=== PATIENT | female | born 1950 | race Caucasian/White ===

== ENCOUNTER 2019-10-18 05:54 | Day surgery (SDC) | payer MEDICARE, OTHER ==
[~2019-10-18] VITALS: Ht 154.9 cm; Wt 57.2 kg
[~2019-10-18 05:54] MED LIST: ACET500T68 PO; AMLO2.5T5 PO; ATOR20TA58 PO; LOSA25TA54 PO; NAPR-695 PO
[2019-10-18] MEDS ORDERED: fentaNYL PF VIAL 100 MCG/2 ML VIAL IV PRN (07:00)
[2019-10-18] MEDS ORDERED: ONDANSETRON PF 4 MG/2 ML VIAL. IV PRN (07:00)
[2019-10-18] MEDS ORDERED: IV RINGERS,LACTATED 1000ML 1,000 ML IV SCH (07:00)
[2019-10-18] MEDS ORDERED: MORPHINE SULFATE 2 MG/ML VIAL. IV PRN (07:00)
[2019-10-18] MEDS ORDERED: HYDROmorphone 2 MG/ML VIAL IV PRN (07:00)
[2019-10-18] MEDS ORDERED: PROCHLORPERAZINE 10 MG/2 ML VIAL. IV PRN (07:00)
[2019-10-18] MEDS ORDERED: LIDOCAINE 1% Multi-Dose 20 ML VIAL. ONE (07:13)
[2019-10-18] MEDS ORDERED: HYDR-3164 PO (07:27)
--- NOTE | 2019-10-18 07:33 | DISCH ---
DISCHARGE INSTRUCTIONS Condition on Discharge Condition on Discharge: Stable Activity After Discharge Activity Instructions for Disc: Other, see below (gentle wrist motion with fine motor use allowed avoid excessive wrist motion or hard grasp during first 3-4 weeks) Lifting Instructions after Dis: No heavy lifting, No pulling or pushing Diet after Discharge Diet after Discharge: Regular Wound Incision Care Wound/Incision Care: Ice to area for comfort, Keep wound elevated, Do not change dressing (keep dressing intact for a week unless soiled) Contacting the DRBrigette after DC Call your doctor for: Concerns you may have Follow-Up Follow up with: Dr. Jensen 1 week LIDIA JENSEN MD Oct 18, 2019 07:32
[2019-10-18] MEDS ORDERED: PROPOFOL 40 ML IV ONE (08:01)
[2019-10-18] MEDS ORDERED: LIDOCAINE 1% PF 5 ML VIAL. ONE (08:01)
[2019-10-18] MEDS ORDERED: HYDROcodone/APAP 5/325MG 1 TAB TABLET PO PRN (08:30)
[2019-10-18] MEDS: fentaNYL PF VIAL 100 MCG/2 ML VIAL IV PRN ×2 (08:34→08:47)
--- NOTE | 2019-10-18 08:43 | PDOC4 ---
Operative Note Operative Note Date of surgery: 10/18/2019 Preoperative diagnosis: Ganglion cyst volar right wrist Postoperative diagnosis: Same Operative procedure: Excision volar ganglion cyst right wrist Surgeon: Mikey Assist: Jone Richards nurse practitioner Anesthesia: Aniket block Estimated blood loss: 1 mL Complications: None Specimens: Ganglion cyst to pathology Operative indications: Please see my preoperative orthopedic clinic note for detailed operative indications and note that I had discussed with her the possibility of nonoperative treatment and the operative treatment risks of i nfection nerve or blood vessel damage recurrence of the ganglion continued pain medical or other anesthetic complications among others all her questions were answered she wishes to proceed with surgical evaluation and treatment. Operative text: Patient was identified procedure verified patient placed in the supine position on the operating table. After adequate amounts of her block anesthesia were administered the right upper extremity was prepped and draped in standard sterile fashion after timeout was performed patient procedure identified and verified a longitudinal incision was made over the volar ganglion on the radial side of the wrist. Dissection was carried out around the ganglion and underlying blood vessel was dissected free and preserved the ganglion was dissected free and sent to pathology the stalk originated from an underlying tendon sheath and was cauterized. Closure accomplished with buried Vicryl Steri- Strips and Mastisol sterile soft dressings were placed fingers noted be warm pink find deflation of tourniquet patient was returned to recovery room in stable condition having tolerated procedure well LIDIA AGUILAR MD Oct 18, 2019 08:43
[2019-10-18 09:10] VITALS: BP 138/68
== END 2019-10-18 09:25 | disposition home or self-care (01) ==
LOC: SURG 05:54
PROVIDERS: ATTEND Orthopaedic Surgery
DX: M67.431 Ganglion, right wrist (principal); I10 Essential (primary) hypertension; E78.00 Pure hypercholesterolemia, unspecified; Z72.89 Other problems related to lifestyle
CPT/HCPCS: 25111; J0690; J2704; J3010

== ENCOUNTER → 2021-12-17 | Outpatient (CLI) | payer MEDICARE, OTHER ==
[~2021-12-17] MED LIST changes: +ARMO250T4 PO; +DOCU-109 PO; +GABA600T7 PO; +HYDR-2761 PO; +HYDR-3164 PO; +METH-562 PO; +TRAM50TA PO
--- NOTE | 2021-12-17 15:20 | EKG ---
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
[2021-12-17 15:27] LABS: ALBUMIN 3.4 g/dL (3.4-5.0); ALBUMIN/GLOBULIN RATIO 0.9 (1.0-1.7); CALCIUM 9.1 mg/dL (8.5-10.1); CREATININE 0.9 mg/dL (0.6-1.0); GFR 61.5; TOTAL BILIRUBIN 0.5 mg/dL (0.2-1.0)
[2021-12-17 16:05] LABS: BASO # 0.1 x10^3/uL (0.0-0.2); BASO % 1 % (0-3); EOS # 0.2 x10^3/uL (0.0-0.7); EOS % 2 % (0-3); HEMATOCRIT 38.3 % (36.0-47.0); HEMOGLOBIN 12.6 g/dL (12.0-15.5); LYMPH # 1.1 x10^3/uL (1.0-4.8); LYMPH % 11 % (24-48); MEAN CORPUSCULAR HEMOGLOBIN 30 pg (25-35); MEAN CORPUSCULAR HGB CONC 33 g/dL (31-37); MEAN CORPUSCULAR VOLUME 91 fL (79-100); MONO # 0.8 x10^3/uL (0.0-1.1); MONO % 9 % (0-9); NEUT # 7.6 x10^3/uL (1.8-7.7); NEUT % 78 % (31-73); PLATELET COUNT 318 x10^3/uL (140-400); RED BLOOD COUNT 4.22 x10^6/uL (3.50-5.40); RED CELL DISTRIBUTION WIDTH 12.9 % (11.5-14.5); WHITE BLOOD COUNT 9.7 x10^3/uL (4.0-11.0)
== END ==
LOC: SURGPAT 14:33
PROVIDERS: ATTEND Neurological Surgery
DX: Z01.818 Encounter for other preprocedural examination (principal); M48.02 Spinal stenosis, cervical region
CPT/HCPCS: 36415; 80053; 85025; 87641; 93005

== ENCOUNTER 2021-12-19 07:27 | Inpatient (IN) | payer MEDICARE, OTHER ==
[2021-12-17 15:04] VITALS: BP 109/78
--- NOTE | 2021-12-18 15:42 | PREOP HP ---
DATE OF SERVICE: 12/19/2021 HISTORY OF PRESENT ILLNESS: The patient is a pleasant 71-year-old who is having difficulty with low back pain and pain between her right hip and buttock and anterolateral thigh to the knee. She is also having difficulty with unsteady gait and stumbling. With regard to her lower back, sitting and lying on the right side can help. Walking and standing make the problem worse. She is taking gabapentin and tramadol. She has had physical therapy in 06/2021. She does use a cane, but has not fallen. She also notices weakness in her right foot. CURRENT MEDICATIONS: Loratadine, multivitamin, atorvastatin, losartan, amlodipine, tramadol, Celebrex, and gabapentin. PAST MEDICAL HISTORY: Arthritis, right knee replacement, and hypertension. PAST SURGICAL HISTORY: Right rotator cuff repair, cervical fusion, tendon repair, right total knee replacement. SOCIAL HISTORY: Retired, , nonsmoker. Drinks alcohol 1-2 times per year. ALLERGIES: No known drug allergies. REVIEW OF SYSTEMS: A 12-point review of systems was performed and is noncontributory. PHYSICAL EXAMINATION: GENERAL: Alert, pleasant, in no acute distress. HEENT: Head is normocephalic, atraumatic. NECK: Mild tenderness with palpation of the posterior cervical region, well-healed incision. SKIN: Warm and dry. MUSCULOSKELETAL: Cervical and lumbar paraspinal muscle bulk is normal, restricted range of motion of the cervical spine, normal range of motion of the upper and lower extremities bilaterally. EXTREMITIES: No clubbing, cyanosis or edema. NEUROLOGIC: Alert and oriented x 3. Strength is 5/5 in the bilateral lower extremities except 4/5 right foot dorsiflexion, sensory was intact to light touch in the upper and lower extremities except for decreased in the dorsum of her right foot, reflexes were brisk 3+ and symmetric in the bilateral lower extremities. She has spastic gait. IMAGING: On the cervical MRI scan, she has moderately severe cervical spinal stenosis at L 3-4 and severe stenosis at C4-5. ASSESSMENT AND PLAN: At this point, the cervical stenosis needs to be addressed first. She will need a 2-level ACDF at C3-4 and C4-5. She does have spinal stenosis at L4-5 as well. After she is recovered from cervical surgery, she will require a right direct laminectomy at L4-5. I spoke with her about the cervical surgery including the spine and explained the risk of the surgery in detail. We also reviewed the expected postoperative course. She understands and would strongly like to go ahead. We will make the arrangements. RUI/MADELINE/GABBI DR: Ayan TID: [id number]
[2021-12-19] VITALS (10 sets, daily range): BP systolic 103–143; BP diastolic 52–86
[~2021-12-19] VITALS: Ht 154.9 cm; Wt 56.0 kg
[~2021-12-19 07:27] MED LIST changes: +0.9 % SODIUM CHLORIDE 20 ML VIAL. IJ ONE; +BUPIVACAINE-EPI 0.5% 30 ML VIAL KIT. ONE; +DEXAMETHASONE SOD PHOS 4 MG/ML VIAL ONE; -DOCU-109 PO; +GELATIN SPONGE SIZE 100. ONE; -HYDR-2761 PO; +HYDROmorphone 2 MG/ML INJ. IVP PRN; +IV RINGERS,LACTATED 1000ML 1,000 ML IV SCH; +KETOROLAC 60 MG/2 ML VIAL. ONE; +LIDOCAINE 2% PF 5 ML VIAL. ONE; -METH-562 PO; +ONDANSETRON PF 4 MG/2 ML VIAL. ONE; +PHENYLEPHRINE 10 MG/ML VIAL. ONE; +PHENYLEPHRINE in 0.9% NACL PF 1 MG/10 ML SYRINGE. IV ONE; +PROCHLORPERAZINE 10 MG/2 ML VIAL. IVP PRN; +PROPOFOL 10 MG/ML (20ML) VIAL. IV ONE; +PROPOFOL 50 ML IV ONE; +REMIFENTANIL 1 MG VIAL. IV ONE; +ROCURONIUM 50 MG/5 ML VIAL. ONE; +THROMBIN TOPICAL 20,000 UNIT SPRAY.SYRN KIT TP ONE; +ceFAZolin SODIUM 1 GM in IV NORMAL SALINE 1000ML BAG 1,000 ML IRR ONE; +fentaNYL PF VIAL 100 MCG/2 ML VIAL IVP PRN; +fentaNYL PF VIAL 100 MCG/2 ML VIAL ONE
[2021-12-19] MEDS ORDERED: GLYCOPYRROLATE 1 MG/5 ML VIAL. ONE (07:30)
[2021-12-19] MEDS ORDERED: SCOPOLAMINE 1.5MG PATCH. TD ONE (07:30)
[2021-12-19] MEDS ORDERED: PROPOFOL 50 ML IV ONE (08:29)
[2021-12-19] MEDS ORDERED: ceFAZolin 2GM PREMIX 2 GM/50 ML BAG IV ONE (08:30)
[2021-12-19] MEDS ORDERED: NEOSTIGMINE METHYLSULFATE 5 MG/5 ML SYRINGE. ONE (10:44)
[2021-12-19] MEDS ORDERED: fentaNYL PF VIAL 100 MCG/2 ML VIAL ONE ×2 (10:55→13:32)
[2021-12-19] MEDS ORDERED: POTASSIUM CL 20MEQ D5-0.45NACL 1,000 ML IV SCH (13:15)
[2021-12-19] MEDS ORDERED: 0.9 % SODIUM CHLORIDE 10 ML DISP.SYRIN. IV PRN (13:15)
[2021-12-19] MEDS ORDERED: NALOXONE 0.4 MG/ML VIAL. IV PRN (13:15)
[2021-12-19] MEDS ORDERED: diphenhydrAMINE HCL 25 MG CAPSULE PO PRN (13:15)
[2021-12-19] MEDS ORDERED: traMADol 50 MG TABLET PO PRN (13:15)
[2021-12-19] MEDS ORDERED: CALCIUM CARBONATE 500 MG TAB.CHEW PO PRN (13:15)
[2021-12-19] MEDS ORDERED: MAG HYDROX/ALUMINUM HYD/SIMETH 30 ML ORAL.SUSP PO PRN (13:15)
[2021-12-19] MEDS ORDERED: fentaNYL PF VIAL 100 MCG/2 ML VIAL IVP PRN (13:15)
[2021-12-19] MEDS ORDERED: MAGNESIUM HYDROXIDE 2,400 MG/30 ML ORAL.SUSP. PO PRN (13:15)
[2021-12-19] MEDS ORDERED: ACETAMINOPHEN 325 MG TABLET. PO PRN (13:15)
[2021-12-19] MEDS ORDERED: HYDROcodone/APAP 5/325MG 1 TAB TABLET PO PRN (13:15)
[2021-12-19] MEDS ORDERED: ONDANSETRON PF 4 MG/2 ML VIAL. IVP PRN (13:15)
[2021-12-19] MEDS ORDERED: MORPHINE SULFATE 2 MG/ML INJ. ONE (13:32)
[2021-12-19] MEDS: fentaNYL PF VIAL 100 MCG/2 ML VIAL IVP PRN ×2 (13:34→13:45)
[2021-12-19] MEDS: MORPHINE SULFATE 2 MG/ML INJ. IVP PRN ×2 (13:36→13:58)
[2021-12-19] MEDS ORDERED: PROCHLORPERAZINE 10 MG/2 ML VIAL. ONE (13:59)
--- NOTE | 2021-12-19 15:29 | NUR ---
received from PACU. she is drowsy; voice is a whisper and mouth dry. has a history of post op nausea; denies nausea at this time. states that the tips of right fingers feel numb but has sensation to touch of my nail on the tips. she has numbness on the soles of her feet; not new. son at bedside Addendum: 12/19/21 at 1533 by STUART ALMONTE RN dressing is dry and intact. multiple bruising on her bilateral forearms
[2021-12-19] MEDS: METHOCARBAMOL 750 MG TABLET PO PRN (15:30)
[2021-12-19] MEDS: ceFAZolin SODIUM IV Push 1 GM VIAL. IVP SCH (17:17)
[2021-12-19] MEDS ORDERED: GABAPENTIN 300 MG CAPSULE. PO SCH (21:00)
[2021-12-19] MEDS ORDERED: ATORVASTATIN CALCIUM 20 MG TABLET PO SCH (21:00)
[2021-12-19] MEDS: DOCUSATE SODIUM 100 MG CAPSULE. PO SCH (21:19)
[2021-12-20] MEDS: ceFAZolin SODIUM IV Push 1 GM VIAL. IVP SCH ×2 (01:01→08:29)
[2021-12-20] MEDS: fentaNYL PF VIAL 100 MCG/2 ML VIAL IVP PRN (01:10)
[2021-12-20 03:00] VITALS: BP 122/66
[2021-12-20 07:00] VITALS: BP 120/73
[2021-12-20] MEDS ORDERED: GABAPENTIN 100 MG CAPSULE. PO SCH (08:00)
[2021-12-20] MEDS: DOCUSATE SODIUM 100 MG CAPSULE. PO SCH (08:29)
[2021-12-20] MEDS: HYDROcodone/APAP 5/325MG 1 TAB TABLET PO PRN ×2 (08:29→16:11)
[2021-12-20] MEDS ORDERED: LOSARTAN POTASSIUM 50 MG TABLET. PO SCH (09:00)
[2021-12-20] MEDS ORDERED: NON FORMULARY ITEM (Armodafinil (Nuvigil) 1 TAB) PO SCH (09:00)
[2021-12-20] MEDS: METHOCARBAMOL 750 MG TABLET PO PRN (10:57)
[2021-12-20 11:05] VITALS: BP 107/68
[2021-12-20] MEDS ORDERED: DOCU-109 PO (13:15)
[2021-12-20] MEDS ORDERED: METH-562 PO (13:15)
[2021-12-20] MEDS ORDERED: HYDR-2761 PO (13:15)
--- NOTE | 2021-12-20 13:19 | DISCH ---
DISCHARGE INSTRUCTIONS Condition on Discharge Condition on Discharge: Stable Activity After Discharge Activity Instructions for Disc: Activity as tolerated, Avoid exertion, Other, see below Other activity instructions: no driving for a week Bathing Instructions: Shower-keep dressing dry, No Tub Bath until see Lifting Instructions after Dis: No heavy lifting, No pulling or pushing Diet after Discharge Diet after Discharge: Regular Additional Diet Restrictions: resume home diet, soft Wound Incision Care Wound/Incision Care: Ice to area for comfort, Keep wound elevated, Do not change dressing Other wound/incision instructi: may remove dressing in 48 hours if dry, soft collar for comfort Contacting the after DC Call your doctor for: Concerns you may have Follow-Up Follow up with: Dr. Norris's nurse in 2 weeks [phone] RHEA NORRIS MD Dec 20, 2021 13:19
[2021-12-20 15:05] VITALS: BP 101/54
--- NOTE | 2021-12-20 16:00 | PDOC ---
PROGRESS NOTES Date of Service DATE: 12/20/21 TIME: 15:58 Subjective Subjective seen at 1315 pod #1 s/p ACDF feels good neck sore Objective Objective Vital Signs Date Time Temp Pulse Resp B/P (MAP) Pulse Ox O2 Delivery O2 Flow Rate FiO2 12/20/21 15:05 99.3 71 18 101/54 (70) 96 Room Air 99.3 12/20/21 08:00 4.0 Intake and Output 12/20/21 07:00 Intake Total 1350 ml Output Total 435 ml Balance 915 ml Intake Oral 700 ml IV Total 650 ml Output Urine Total 400 ml Stool Total 0 ml Estimated Blood Loss 35 ml # Voids 3 Physical Exam General: Alert, Oriented X3, Cooperative HEENT: Other (soft collar) MUSCULOSKELETAL: Other (LAMB) Skin: Other (dressing C,D, I, flat) Plan Plan of Care DC home f/u 2 weeks Comment Review of Relevant I have reviewed the following items janay (where applicable) has been applied. Labs Laboratory Tests Test 12/19/21 07:50 POC SARS CoV-2 Antigen Negative (NEGATIVE) Medications Current Medications Fentanyl Citrate (Fentanyl 2ml Vial) 25 mcg PRN Q5MIN PRN IVP MILD PAIN 1-3; Start 12/19/21 at 06:00; Stop 12/20/21 at 06:00; Status DC Fentanyl Citrate (Fentanyl 2ml Vial) 50 mcg PRN Q5MIN PRN IVP MODERATE PAIN 4-6 Last administered on 12/20/21at 01:10; Start 12/19/21 at 06:00; Stop 12/20/21 at 06:00; Status DC Morphine Sulfate (Morphine Sulfate) 1 mg PRN Q10MIN PRN IVP SEVERE PAIN 7-10 Last administered on 12/19/21at 13:58; Start 12/19/21 at 06:00; Stop 12/20/21 at 06:00; Status DC Ringer's Solution 1,000 ml @ 30 mls/hr Q24H IV Last administered on 12/19/21at 08:00; Start 12/19/21 at 06:00; Stop 12/19/21 at 17:59; Status DC Hydromorphone HCl (Dilaudid) 0.5 mg PRN Q10MIN PRN IVP SEVERE PAIN 7-10, 2nd CHOICE; Start 12/19/21 at 06:00; Stop 12/20/21 at 06:00; Status DC Prochlorperazine Edisylate (Compazine) 5 mg PACU PRN PRN IVP NAUSEA, MRX1 Last administered on 12/19/21at 14:00; Start 12/19/21 at 06:00; Stop 12/20/21 at 06:00; Status DC Cefazolin Sodium 1 gm/Sodium Chloride 1,000 ml @ 1,000 mls/hr 1X ONCE IRR Last administered on 12/19/21at 09:53; Start 12/19/21 at 06:00; Stop 12/19/21 at 06:59; Status DC Gelatin (Gelfoam Size 100) 1 each STK-MED ONCE .ROUTE Last administered on 12/19/21at 09:53; Start 12/19/21 at 07:20; Stop 12/19/21 at 07:21; Status DC Bupivacaine HCl/ Epinephrine Bitart (Sensorcain-Epi 0.5% Kit) 30 ml STK-MED ONCE .ROUTE Last administered on 12/19/21at 09:53; Start 12/19/21 at 07:20; Stop 12/19/21 at 07:21; Status DC Ketorolac Tromethamine (Toradol Im) 60 mg STK-MED ONCE .ROUTE ; Start 12/19/21 at 07:20; Stop 12/19/21 at 07:21; Status DC Thrombin 20,000 unit STK-MED ONCE TP Last administered on 12/19/21at 09:53; Start 12/19/21 at 07:21; Stop 12/19/21 at 07:21; Status DC Scopolamine (Transderm-Scop) 1 patch 1X ONCE TD Last administered on 12/19/21at 08:00; Start 12/19/21 at 07:30; Stop 12/19/21 at 07:31; Status DC Cefazolin Sodium/ Dextrose 50 ml @ 100 mls/hr 1X ONCE IV Last administered on 12/19/21at 09:18; Start 12/19/21 at 08:00; Stop 12/19/21 at 08:29; Status DC Propofol (Diprivan) 200 mg STK-MED ONCE IV ; Start 12/19/21 at 06:06; Stop 12/19/21 at 08:07; Status DC Phenylephrine HCl (Robert-Synephrine Inj) 10 mg STK-MED ONCE .ROUTE ; Start 12/19/21 at 06:06; Stop 12/19/21 at 08:07; Status DC Propofol 50 ml @ As Directed STK-MED ONCE IV ; Start 12/19/21 at 06:06; Stop 12/19/21 at 08:07; Status DC Sodium Chloride (SODIUM CHLORIDE 20ml) 20 ml STK-MED ONCE IJ ; Start 12/19/21 at 06:06; Stop 12/19/21 at 08:07; Status DC Dexamethasone Sodium Phosphate (Decadron) 4 mg STK-MED ONCE .ROUTE ; Start 12/19/21 at 06:06; Stop 12/19/21 at 08:07; Status DC Remifentanil HCl (Ultiva) 1 mg STK-MED ONCE IV ; Start 12/19/21 at 06:06; Stop 12/19/21 at 08:07; Status DC Fentanyl Citrate (Fentanyl 2ml Vial) 100 mcg STK-MED ONCE .ROUTE ; Start 12/19/21 at 06:07; Stop 12/19/21 at 08:07; Status DC Rocuronium [place] (Zemuron) 50 mg STK-MED ONCE .ROUTE ; Start 12/19/21 at 06:07; Stop 12/19/21 at 08:07; Status DC Lidocaine HCl (Lidocaine Pf 2% Vial) 5 ml STK-MED ONCE .ROUTE ; Start 12/19/21 at 06:07; Stop 12/19/21 at 08:08; Status DC Ondansetron HCl (Zofran) 4 mg STK-MED ONCE .ROUTE ; Start 12/19/21 at 06:07; Stop 12/19/21 at 08:08; Status DC Phenylephrine HCl (Robert-Synephrine Inj) 10 mg STK-MED ONCE .ROUTE ; Start 12/19/21 at 06:23; Stop 12/19/21 at 08:23; Status DC Phenylephrine HCl (PHENYLEPHRINE in 0.9% NACL PF) 1 mg STK-MED ONCE IV ; Start 12/19/21 at 07:15; Stop 12/19/21 at 09:16; Status DC Glycopyrrolate (Robinul) 1 mg STK-MED ONCE .ROUTE ; Start 12/19/21 at 07:30; Stop 12/19/21 at 09:31; Status DC Propofol 50 ml @ As Directed STK-MED ONCE IV ; Start 12/19/21 at 08:29; Stop 12/19/21 at 10:29; Status DC Neostigmine [place] (Neostigmine Methylsulfate) 5 mg STK-MED ONCE .ROUTE ; Start 12/19/21 at 10:44; Stop 12/19/21 at 12:45; Status DC Fentanyl Citrate (Fentanyl 2ml Vial) 100 mcg STK-MED ONCE .ROUTE ; Start 12/19/21 at 10:55; Stop 12/19/21 at 12:56; Status DC Atorvastatin Calcium (Lipitor) 40 mg HS PO Last administered on 12/19/21at 21:20; Start 12/19/21 at 21:00 Losartan Potassium (Cozaar) 50 mg DAILY PO Last administered on 12/20/21at 08:32; Start 12/20/21 at 09:00 Tramadol HCl (Ultram) 50 mg DAILY PRN PO PAIN; Start 12/19/21 at 13:15 Amlodipine Besylate (Norvasc) 5 mg DAILY PO ; Start 12/20/21 at 09:00 Non-Formulary Medication (Armodafinil (Nuvigil)) 1 tab DAILY PO ; Start 12/20/21 at 09:00; Status UNV Gabapentin (Neurontin) 100 mg DAILYWBKFT PO Last administered on 12/20/21at 08:29; Start 12/20/21 at 08:00 Gabapentin (Neurontin) 300 mg HS PO Last administered on 12/19/21at 21:19; Start 12/19/21 at 21:00 Fentanyl Citrate (Fentanyl 2ml Vial) 50 mcg PRN Q2HR PRN IVP PAIN Last administered on 12/19/21at 15:32; Start 12/19/21 at 13:15 Acetaminophen (Tylenol) 650 mg PRN Q6HRS PRN PO MILD PAIN / TEMP > 100.3'F; Start 12/19/21 at 13:15 Al Hydroxide/Mg Hydroxide (Mylanta Plus Xs) 30 ml PRN Q3HRS PRN PO HEARTBURN / GAS; Start 12/19/21 at 13:15 Calcium Carbonate/ Glycine (Tums) 500 mg PRN Q3HRS PRN PO INDIGESTION; Start 12/19/21 at 13:15 Diphenhydramine HCl (Benadryl) 25 mg PRN Q6HRS PRN PO ITCHING; Start 12/19/21 at 13:15 Naloxone HCl (Narcan) 0.1 mg PRN Q2MIN PRN IV SEE COMMENTS; Start 12/19/21 at 13:15 Sodium Chloride (Normal Saline Flush) 3 ml QSHIFT PRN IV AFTER MEDS AND BLOOD DRAWS; Start 12/19/21 at 13:15 Potassium Chloride/Dextrose/ Sod Cl 1,000 ml @ 75 mls/hr [id number] IV ; Start 12/19/21 at 13:15 Acetaminophen/ Hydrocodone Bitart (Lortab 5/325) 1 tab PRN Q4HRS PRN PO MILD PAIN 1-3 Last administered on 12/20/21at 08:29; Start 12/19/21 at 13:15 Acetaminophen/ Hydrocodone Bitart (Lortab 5/325) 2 tab PRN Q4HRS PRN PO MODERATE PAIN, SEVERE PAIN; Start 12/19/21 at 13:15 Methocarbamol (Robaxin) 750 mg TID PRN PO MUSCLE SPASMS Last administered on 12/20/21at 10:57; Start 12/19/21 at 13:15 Docusate Sodium (Colace) 100 mg BID PO Last administered on 12/20/21at 08:29; Start 12/19/21 at 21:00 Magnesium Hydroxide (Milk Of Magnesia) 2,400 mg PRN Q12HR PRN PO CONSTIPATION; Start 12/19/21 at 13:15 Ondansetron HCl (Zofran) 4 mg PRN Q6HRS PRN IVP NAUESA, 1ST CHOICE; Start 12/19/21 at 13:15 Cefazolin Sodium (Ancef) 1 gm Q8H IVP Last administered on 12/20/21at 08:29; Start 12/19/21 at 17:00; Stop 12/20/21 at 09:01; Status DC Cefazolin Sodium/ Dextrose (Ancef 2gm Premix) 2 gm STK-MED ONCE IV ; Start 12/19/21 at 08:30; Stop 12/19/21 at 13:25; Status DC Fentanyl Citrate (Fentanyl 2ml Vial) 100 mcg STK-MED ONCE .ROUTE ; Start 12/19/21 at 13:32; Stop 12/19/21 at 13:32; Status DC Morphine Sulfate (Morphine Sulfate) 2 mg STK-MED ONCE .ROUTE ; Start 12/19/21 at 13:32; Stop 12/19/21 at 13:32; Status DC Prochlorperazine Edisylate (Compazine) 10 mg STK-MED ONCE .ROUTE ; Start 12/19/21 at 13:59; Stop 12/19/21 at 13:59; Status DC Active Scripts Active Colace (Docusate Sodium) 100 Mg Capsule 100 Mg PO BID Hydrocodone-Apap 5-325 (Hydrocodone Bit/Acetaminophen) 1 Tab Tablet 1 Tab PO PRN Q4HRS PRN Methocarbamol 750 Mg Tablet 750 Mg PO TID PRN Reported Tramadol Hcl 50 Mg Tablet 50 Mg PO DAILY PRN Nuvigil (Armodafinil) 250 Mg Tablet 1 Tab PO DAILY MDD 1 Tablet(s) 30 Days Gabapentin 600 Mg Tablet 300 Mg PO HS Gabapentin 600 Mg Tablet 100 Mg PO DAILYWBKFT Atorvastatin Calcium 20 Mg Tablet 40 Mg PO HS Losartan Potassium (Losartan Potassium) 25 Mg Tablet 50 Mg PO DAILY Amlodipine Besylate 2.5 Mg Tablet 5 Mg PO DAILY Vitals/I & O Vital Sign - Last 24 Hours 12/19/21 12/19/21 12/19/21 12/19/21 16:02 16:15 17:00 18:03 Temp 97.2 97.2 Pulse 61 80 66 Resp 18 18 20 B/P (MAP) 120/70 (87) 113/71 (85) 121/52 (75) Pulse Ox 93 93 90 95 O2 Delivery Room Air Room Air Room Air Room Air 12/19/21 12/20/21 12/20/21 12/20/21 23:00 01:10 01:40 03:00 Temp 98.1 98.3 98.1 98.3 Pulse 65 68 Resp 20 20 20 20 B/P (MAP) 103/68 (80) 122/66 (84) Pulse Ox 90 91 O2 Delivery Room Air Room Air Room Air 12/20/21 12/20/21 12/20/21 12/20/21 07:00 08:00 08:29 08:32 Temp 97.9 97.9 Pulse 62 77 Resp 20 B/P (MAP) 120/73 (89) 128/76 Pulse Ox 92 O2 Delivery Room Air Nasal Cannula Room Air O2 Flow Rate 4.0 12/20/21 12/20/21 12/20/21 09:00 11:05 15:05 Temp 98.7 99.3 98.7 99.3 Pulse 68 71 Resp 16 18 B/P (MAP) 107/68 (81) 101/54 (70) Pulse Ox 95 96 O2 Delivery Room Air Room Air Room Air Intake and Output 12/19/21 12/19/21 12/20/21 15:00 23:00 07:00 Intake Total 650 ml 450 ml 250 ml Output Total 35 ml 400 ml 0 ml Balance 615 ml 50 ml 250 ml Justifications for Admission Other Justification PAOLA ORDONEZ NURSING PROJECT COORDINATOR Dec 20, 2021 16:00
--- NOTE | 2021-12-20 16:20 | NUR ---
Discharge instructions given. Answered questions and concerns. Verbalized understanding. Pain pill given per request. Pt discharged home accompanied by sister. Escorted out by w/c.
--- NOTE | 2021-12-20 17:38 | OP ---
DATE OF SURGERY: 12/19/2021 PREOPERATIVE DIAGNOSIS: Cervical spinal stenosis, moderately severe at C3-4 and severe at C4-5 with cervical myelopathy. POSTOPERATIVE DIAGNOSIS: Cervical spinal stenosis, moderately severe at C3-4 and severe at C4-5 with cervical myelopathy. OPERATION PERFORMED: Anterior cervical microdiscectomy, C3-4, C4-5; anterior cervical interbody fusion, C3-4, C4-5; anterior cervical plate, C3, 4, 5. Removal of hardware C5. The operation was done with multimodality monitoring including EMG, SSEP, NIMS monitoring, motor evoked potentials. Fluoroscopy was employed. SURGEON: Kamlesh Lerner M.D. BLOWN FILM EXTRUSION OPERATOR: DENISE Cuadra, assisted with the surgery. She assisted with the exposure, the 2-level fusion as well as the closure. OPERATIVE INDICATIONS: The patient is a pleasant 71-year-old who initially presented with problems relating to severe lumbar spinal stenosis. She was found in that evaluation to have evidence of a cervical spinal stenosis and underwent an MRI scan of her cervical spine, primarily because of significant unsteadiness as well as weakness in her right lower extremity. The above-mentioned findings were seen and I recommended surgery as described above. She understood the surgery. She understood the sequelae of injury to the soft tissue structures of her neck, which were possible during the operation. She understood the expected postoperative course. She wanted to go ahead. DESCRIPTION OF PROCEDURE: Following general endotracheal anesthesia, the patient was carefully intubated. She was in a neutral position. Anterior cervical region was then prepped and draped in the standard fashion. MICHAEL hose and AV impulse boots were applied for DVT prophylaxis. Microscope was draped, fluoroscopy was draped and brought into field. Monitoring was established. Ancef 2 grams given less than 1 hour prior to the initiation of the surgery. An incision was made from the midline around toward the right side in a small skin crease. I dissected down through skin and subcutaneous tissue. I dissected around the medial aspect of the sternocleidomastoid and carotid artery sheath down the anterior cervical vertebral bodies. I reflected the trachea and esophagus contralaterally. I placed self-retaining retractors to expose C4-5. She had previously undergone an anterior cervical microdiscectomy and fusion at C5-6. After exposing C3-4, C4-5, I worked down through scar tissue and exposed the upper half of C5-6, which was densely covered in scar. I, with some difficulty, was able to back the screws out of the superior portion of the plate construct and cut across it with a metal cutting bur, removed the upper third of the construct allowing me to have access to secure the plate from the superior portion of the surgery. I placed pins in C4 and C5 and incised the annulus and during this time of course, the microscope was brought in and microscopic technique was employed. I placed an anterior cervical retractors wedged in the longus colli muscle and incised the anterior annulus with a #11 blade. I performed a discectomy with pituitary rongeurs, scraped the cartilaginous endplate. I opened the annulus and ligament and assured myself that bilaterally it was open. I scraped the endplate and prepared the bed for fusion. I had excellent hemostasis, although the bone was quite vascular. I irrigated copiously, put a small piece of Gelfoam in each lateral gutter and placed a cage packed with allograft, which I tapped into position. I then moved up to C3. I placed a pin in C3, distracted C3-4, incised the anterior annulus. I did remove the retractor superiorly for this portion and incised the annulus, performed a discectomy, drilled the posterior spurring with a high-speed air drill, distracted, scraped cartilaginous endplate. I assured myself that the neural foramina were opened bilaterally and I visualized the dura after removing the annulus and ligament. Hemostasis again was excellent. I tapped into position a cage packed with allograft and then placed an anterior plate and placed superior and inferior 14 mm screws first and then placed the remaining screws. I then locked all of the screws into position and irrigated copiously with antibiotic solution. I removed the retractors. I assured myself of excellent hemostasis. I did have the patient valsalvaed. Hemostasis was excellent. I closed the wound in layers after irrigating. I closed with absorbable suture and the skin was closed with 4-0 subcuticular stitch. I felt the surgery went very well. GUEVARA DR: Idalia TID: [id number] GENET
--- NOTE | 2021-12-23 19:07 | PATHOLOGY ---
[facility] Accession Number: [id number] . 01 Material submitted: . cervix - CERVICAL DISC . 01 Clinical history: . CERVICAL STENOSIS ACDF C3-4, C4-5 . 01 Diagnosis: Bone and cartilage "cervical disc": - Fibrocartilaginous tissue and bone consistent with disc material. . ([facility]:mml; 12/23/2021) M 12/23/2021 1611 Local . 01 Electronically signed: . Alan Bosch MD, Pathologist NPI- [id number] . 01 Gross description: . The specimen is received in formalin, labeled "Estefania Malik, cervical disc". Received are multiple segments of pale bruce to pink-bruce fibrous tissue admixed with fragments of gritty bone measuring 2.5 x 1.5 x 0.2 cm in aggregate dimensions. The specimen is submitted patient service representative in cassette A1, following decalcification using Immunocal. ([facility]; 12/20/2021) [facility] 12/20/2021 1233 Local . 01 Pathologist provided ICD-10: M99.71 . 01 CPT . 579847, 193799 Specimen Comment: A courtesy copy of this report has been sent to [phone] Specimen Comment: [id number], Specimen Comment: Report sent to , DR BOUDREAUX / DR PATTERSON Performed at: [facility] [address], [place], [place] [id number] MD Alan Bosch MD Phone: [phone]
--- NOTE | 2021-12-26 14:52 | DS ---
DATE OF DISCHARGE: 12/20/2021 DISCHARGE DIAGNOSES: Cervical spinal stenosis, moderately severe at C3-4 and severe at C4-5 with cervical myelopathy. OPERATION PERFORMED: ACDF C3-4, C4-5 and removal of hardware C5. HISTORY OF PRESENT ILLNESS: The patient is a pleasant 71-year-old who initially presented with problems related to severe lumbar spinal stenosis. She was found during that evaluation to have evidence of cervical spinal stenosis and underwent an MRI scan of her cervical spine because of unsteadiness as well as weakness in her right lower extremity. The above-mentioned findings were seen and I recommended surgery as described above. She understood the surgery and the risk. She understood the sequelae of injury to the soft tissue structures of the neck, which were possible during the operation. She understood the expected postoperative course. She understood and wished to go ahead. HOSPITAL COURSE: She was admitted to the floor postoperatively where she did well. She was up ambulating in the room and in the halls. Physical therapy was initiated and instruction was given to her regarding her activities. Her voice was clear. Her pain was well controlled. She was in good condition to discharge home. DISCHARGE MEDICATIONS: She will resume her medications per the MRAD. DISCHARGE INSTRUCTIONS: She was instructed regarding incision care and activity restrictions. She will follow up with us in 2 weeks in the office. She understands to contact us with any questions or concerns prior to that. NAYAN DR: Ayan TID: [phone]
[2021-12-27] MEDS ORDERED: ONDA-84 PO (12:50)
== END 2021-12-20 16:20 | disposition home or self-care (01) | DRG 472 ==
LOC: OPSVCIP 07:27 → EDSTATUS 08:30 → 4 SOUTHEST 14:24
PROVIDERS: ADMIT Neurological Surgery; ATTEND Neurological Surgery
PROC: 0RB30ZZ Excision of Cervical Vertebral Disc, Open Approach (ICD-10-PCS; 2021-12-19)
PROC: 0RP104Z Removal of Internal Fixation Device from Cervical Vertebral Joint, Open Approach (ICD-10-PCS; 2021-12-19)
PROC: 4A11X4G Monitoring of Peripheral Nervous Electrical Activity, Intraoperative, External Approach (ICD-10-PCS; 2021-12-19)
PROC: 0RG20A0 Fusion of 2 or more Cervical Vertebral Joints with Interbody Fusion Device, Anterior Approach, Anterior Column, Open Approach (ICD-10-PCS; principal; 2021-12-19 08:30)
DX: M48.02 Spinal stenosis, cervical region (principal); G99.2 Myelopathy in diseases classified elsewhere; M48.061 Spinal stenosis, lumbar region without neurogenic claudication; I10 Essential (primary) hypertension; Z96.651 Presence of right artificial knee joint; Z98.1 Arthrodesis status; Z20.822 Contact with and (suspected) exposure to COVID-19; Z79.899 Other long term (current) drug therapy
CPT/HCPCS: 36415; 76000; 80053; 85025; 87641; 88304; 88311; 93005; A4222; A4364; A4657; A4930; A6254; A6258; C1713; C1821; J0690; J0780; J1100; J1885; J2270; J2370; J2405; J2704; J2710; J3010; J3490; J7030; J7120; 97116-GP; 97530-GP; G0378

== ENCOUNTER 2021-12-25 19:10 | Inpatient (IN) | payer MEDICARE, OTHER ==
[~2021-12-25] VITALS: Ht 154.9 cm; Wt 57.0 kg
[~2021-12-25 19:10] MED LIST changes: -0.9 % SODIUM CHLORIDE 20 ML VIAL. IJ ONE; -BUPIVACAINE-EPI 0.5% 30 ML VIAL KIT. ONE; -DEXAMETHASONE SOD PHOS 4 MG/ML VIAL ONE; +DOCU-109 PO; -GELATIN SPONGE SIZE 100. ONE; +HYDR-2761 PO; -HYDROmorphone 2 MG/ML INJ. IVP PRN; -IV RINGERS,LACTATED 1000ML 1,000 ML IV SCH; -KETOROLAC 60 MG/2 ML VIAL. ONE; -LIDOCAINE 2% PF 5 ML VIAL. ONE; +METH-562 PO; -ONDANSETRON PF 4 MG/2 ML VIAL. ONE; -PHENYLEPHRINE 10 MG/ML VIAL. ONE; -PHENYLEPHRINE in 0.9% NACL PF 1 MG/10 ML SYRINGE. IV ONE; -PROCHLORPERAZINE 10 MG/2 ML VIAL. IVP PRN; -PROPOFOL 10 MG/ML (20ML) VIAL. IV ONE; -PROPOFOL 50 ML IV ONE; -REMIFENTANIL 1 MG VIAL. IV ONE; -ROCURONIUM 50 MG/5 ML VIAL. ONE; -THROMBIN TOPICAL 20,000 UNIT SPRAY.SYRN KIT TP ONE; -ceFAZolin SODIUM 1 GM in IV NORMAL SALINE 1000ML BAG 1,000 ML IRR ONE; -fentaNYL PF VIAL 100 MCG/2 ML VIAL IVP PRN; -fentaNYL PF VIAL 100 MCG/2 ML VIAL ONE
[2021-12-25] MEDS ORDERED: ONDANSETRON PF 4 MG/2 ML VIAL. IVP ONE (20:00)
[2021-12-25] MEDS ORDERED: IV NORMAL SALINE 1000ML BAG 1,000 ML IV SCH (20:00)
--- NOTE | 2021-12-25 20:08 | PHYS DOC ---
Past Medical History Past Medical History: High Cholesterol Additional Past Medical Histor: OSTEOARTHRITIS Past Surgical History: Cervical Fusion, Other Additional Past Surgical Histo: R knee, TENDON REPAIR RIGHT HIP, DISKECTOMY Smoking Status: Never Smoker Alcohol Use: None Drug Use: None General Adult EDM: Chief Complaint: NAUSEA/VOMITING/DIARRHEA HPI: HPI: Patient is a 71 year old female who presents with nausea, vomiting, chills, low mid abdominal pain all starting today. She states she had a cervical discectomy on November 21 and she had been having some back of her neck pain and stiffness but she states is the same as she has had since after surgery. She states she talked to Dr. Lerner nurse practitioner Sophy today and start her on a steroid for inflammation to help. She states they stated that this is just a normal postoperative pain that she is having. She is also on Robaxin and hydrocodone. Patient states she just does not feel well and states at times she has postnasal drip and it chokes her.. Denies chest pain, cough, urinary symptoms, more neck stiffness since surgery, more pain since surgery, dizziness, headache, focal wea kness, shortness of breath, nasal congestion, sore throat, numbness or tingling, vision change. Patient has a history of cervical fusion, high cholesterol and osteoarthritis. Review of Systems: Review of Systems: Constitutional: + fever or +chills. [] Eyes: Denies change in visual acuity. [] HENT: Denies nasal congestion or sore throat. [] Respiratory: Denies cough or shortness of breath. [] Cardiovascular: Denies chest pain or edema. [] GI: +abdominal pain, +nausea, +vomiting, denies bloody stools or diarrhea. [] : Denies dysuria. [] Musculoskeletal: Denies back pain or joint pain. + Continued neck pain [] Integument: Denies rash. [] Neurologic: Denies headache, focal weakness or sensory changes. [] Endocrine: Denies polyuria or polydipsia. [] Lymphatic: Denies swollen glands. [] Psychiatric: Denies depression or anxiety. [] Heart Score: C/O Chest Pain: No HEART Score for Chest Pain: HEART Score for Chest Pain Response (Comments) Value History Slighlty/Non-Suspicious 0 ECG Normal 0 Age > 65 2 Risk Factors 1 or 2 Risk Factors 1 Troponin < Normal Limit 0 Total 3 Risk Factors: Risk Factors: DM, Current or recent (<one month) smoker, HTN, HLP, family history of CAD, obesity. Risk Scores: Score 0 - 3: 2.5% MACE over next 6 weeks - Discharge Home Score 4 - 6: 20.3% MACE over next 6 weeks - Admit for Clinical Observation Score 7 - 10: 72.7% MACE over next 6 weeks - Early Invasive Strategies Current Medications: Current Medications Medications (Trade) Dose Ordered Sig/Jeanmarie Start Time Stop Time Status Last Admin Dose Admin Ondansetron HCl (Zofran) 4 mg 1X ONCE 12/25/21 20:00 12/25/21 20:01 UNV Sodium Chloride 1,000 ml @ 1,000 mls/hr Q1H 12/25/21 20:00 12/25/21 20:59 UNV Allergies: Allergies: Allergies Coded Allergies Type Severity Reaction Last Updated Verified No Known Drug Allergies 12/19/21 No Physical Exam: PE: Constitutional: Well developed, well nourished, no acute distress, non-toxic appearance. [] HENT: Normocephalic, atraumatic, bilateral external ears normal, oropharynx moist, no oral exudates, nose normal. [] Eyes: PERRLA, EOMI, conjunctiva normal, no discharge. [] Neck: Normal range of motion, no tenderness, supple, no stridor. [] Cardiovascular:Heart rate regular rhythm, no murmur [] Lungs & Thorax: Bilateral breath sounds clear to auscultation [] Abdomen: Bowel sounds normal, soft, low mid tenderness, no masses, no pulsatile masses. [] Skin: Warm, dry, no erythema, no rash. [] Back: Cervical tenderness at surgical site, no CVA tenderness. [] Extremities: No tenderness, no cyanosis, no clubbing, ROM intact, no edema. [] Neurologic: Alert and oriented X 3, normal motor function, normal sensory function, no focal deficits noted. [] Psychologic: Affect normal, judgement normal, mood normal. [] Current Patient Data: Vital Signs: Vital Signs Date Time Temp Pulse Resp B/P (MAP) Pulse Ox O2 Delivery O2 Flow Rate FiO2 12/25/21 19:26 98.7 97 18 135/82 (99) 95 Room Air 98.7 EKG: EK and read by Dr. Barahona is a sinus rhythm but no STEMI Radiology/Procedures: Radiology/Procedures: [] Impression: [place] [id number] IMAGING REPORT Signed PATIENT: ROM CRAIG ACCOUNT: [id number] : 1950 LOCATION: ER AGE: 71 SEX: F EXAM STATUS: REG ER ORD. PHYSICIAN: DEVON FARNSWORTH APRN REASON: fever, vomiting PROCEDURE: PORTABLE CHEST 1V EXAM: AP View of the chest DATE: 12/25/2021 8:20 PM INDICATION: Reason: fever, vomiting / Spl. Instructions: / History: COMPARISON: No Prior FINDINGS: The heart is not enlarged. Mediastinal and hilar contours are normal. Lungs are clear. No pleural effusion or pneumothorax. Severe right shoulder joint osteoarthritis with high riding right humeral head suggesting rotator cuff tear. IMPRESSION: 1. No radiographic evidence for acute cardiopulmonary process. Electronically signed by: Wilbert Foley MD (12/25/2021 8:42 PM) [facility] DICTATED and SIGNED BY: WILBERT FOLEY MD DATE: 12/25/217047ASF5 [address] [id number] IMAGING REPORT Signed PATIENT: ROM CRAIG ACCOUNT: [id number] : 1950 LOCATION: ER AGE: 71 SEX: F EXAM STATUS: REG ER ORD. PHYSICIAN: DEVON FARNSWORTH APRN REASON: abdominal pain, fever, vomiting PROCEDURE: CT ABD PELV W/ IV CONTRST ONLY INDICATION: Reason: abdominal pain, fever, vomiting / Spl. Instructions: [id number] 75ML [phone] / History: COMPARISON: None. TECHNIQUE: Axial CT images were obtained through the abdomen and pelvis with intravenous contrast. One or more of the following individualized dose reduction techniques were utilized for this examination: 1. Automated exposure control; 2. Adjustment of the mA and/or kV according to patient size; 3. Use of iterative reconstruction technique. FINDINGS: Vascular: Scattered atherosclerotic disease. Fat-containing right inguinal hernia. Hepatobiliary: Low-density lesions are seen scattered throughout the liver with many of the larger 1's having the appearance of cystic lesions but many of not well characterized secondary to small size. Gallbladder is contracted. Pancreas: No peripancreatic edema. Spleen: Calcified granulomas of spleen. Renal/Bladder: Low-density lesion of the right kidney measuring approximately 12 mm. Additional numerous subcentimeter low-density bilateral renal lesions which are not well characterized on this exam. No hydronephrosis. Urinary bladder is partially distended. Gastrointestinal: Colonic diverticulosis. The suspected appendix does not appear grossly inflamed. No dilated loops of bowel to suggest obstruction. Severe degenerative changes the hips. Scoliotic curvature of the spine with severe degenerative changes with multilevel central canal and neural foraminal stenosis. There are some probable vertebral body hemangiomas. Grade 1 anterolisthesis of L4 on L5 and L3 on 4. IMPRESSION: * No evidence of bowel obstruction or appendicitis. * No hydronephrosis. There are multiple low-density renal lesions which are not well characterize given the small size. * Numerous low-density liver lesions with some of the larger 1's having the appearance of cystic lesions and many of them too small to characterize on this exam. Electronically signed by: Dillon Martin MD (12/25/2021 10:32 PM) [id number] DICTATED and SIGNED BY: DILLON MARTIN MD DATE: 12/25/21 [id number] [facility] [address] [place] [address] IMAGING REPORT Signed PATIENT: ROM CRAIG ACCOUNT: [id number] : 1950 LOCATION: ER AGE: 71 SEX: F EXAM STATUS: REG ER ORD. PHYSICIAN: DEVON FARNSWORTH APRN REASON: post operative fever PROCEDURE: CT CERVICAL SPINE WO CONTRAST CT CERVICAL SPINE WO History:Reason: post operative fever / Spl. Instructions: / History: Technique: Noncontrast CT imaging was performed of the cervical spine. Multiplanar images are reviewed. Exposure: One or more of the following individualized dose reduction techniques were utilized for this examination: 1. Automated exposure control 2. Adjustment of the mA and/or kV according to patient size 3. Use of iterative reconstruction technique. Comparison: None Findings: Recent anterior stabilization and interbody fusion C3-C5. Prior anterior stabilization device at C6. Bony intervertebral fusion well incorporated facet C5-C6. Unorganized fluid with foci of gas within the retropharynx extending to right lateral neck. There is mild mass effect on the adjacent pharynx. Normal vertebral body height. No acute fracture. Grade 1 anterolisthesis C4 on C5 and C7 on T1. Degenerative disc changes most prominent C6-C7. Multilevel facet arthropathy, left greater than right. Mild canal narrowing most prominent C4-C5. Multilevel neuroforaminal narrowing. Impression: 1. Recent anterior stabilization and interbody fusion C3-C5 with adjacent unorganized retropharyngeal and right lateral neck fluid and gas, likely postoperative. Recommend follow-up Electronically signed by: Aldo Arroyo DO (12/25/2021 10:12 PM) [facility] DICTATED and SIGNED BY: ALDO ARROYO DO DATE: 12/25/21 [id number] 0 Course & Med Decision Making: Course & Med Decision Making Pertinent Labs and Imaging studies reviewed. (See chart for details) COVID-19 CRITERIA: The patient was evaluated during the global COVID-19 pandemic, and that diagnosis was suspected/considered upon their initial presentation. Their evaluation, treatment and testing was consistent with current guidelines for patients who present with complaints or symptoms that may be related to COVID-19. See HPI. Alert and oriented x4. Ambulatory with a steady gait. Speaks in full clear sentences. Afebrile here in the ED. Tenderness to cervical spine. No nuchal rigidity. She is turning her head and her neck to look at me and look over at her son. Abdomen is soft but tender to low mid abdomen. No CVA tenderness. 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 Lungs are clear to auscultation all lobes. I went over findings with Sophy nurse practitioner of Dr. Lerner and she spoke with the doctor and they stated to go ahead and admit the patient they will do an MRI in the morning. They state to not start any antibiotics. Sophy states the patient was most likely vomiting and getting nauseated from the pain medication. CT abdomen pelvis shows no acute findings. Patient is given fluids. She does not have a white blood cell count and does not have a fever. She does not meet sepsis criteria. Cannot find a source of infection. Dr. Lerner states that he thinks that the CT cervical spine results are probably a normal finding postoperatively but he would be an MRI in the morning to make sure that there is nothing else going on. Patient is admitted to hospitalist. [] [place] Disclaimer: Dragon Disclaimer: This electronic medical record was generated, in whole or in part, using a voice recognition dictation system. COVID-19 Patient Risks: Age 65 or older: Yes Sign of co-morbidity: Yes Exp to person + for COVID: No Exp to PUI: No Travel from affected area: No Lower respiratory symptoms: Yes Fever: No (chills) Other: Yes (n,v) PPE Use: Full PPE with N95 mask or PAPR: Yes Departure Departure Referrals: TEQUILA PATTERSON (PCP) DEVON FARNSWORTH APRN Dec 25, 2021 20:07
[2021-12-25 20:12] LABS: BILIRUBIN,URINE NEGATIVE (NEG); CLARITY,URINE CLEAR; COLOR,URINE YELLOW; NITRITE,URINE NEGATIVE (NEG); PROTEIN,URINE NEGATIVE (NEG-TRACE); UROBILINOGEN,URINE 0.2 mg/dL (0.2 mg/dL)
[2021-12-25 20:12] LABS: BASO % 0 % (0-3); EOS % 0 % (0-3); HEMATOCRIT 37.4 % (36.0-47.0); HEMOGLOBIN 12.5 g/dL (12.0-15.5); LYMPH # 0.4 x10^3/uL (1.0-4.8); LYMPH % 10 % (24-48); MEAN CORPUSCULAR HEMOGLOBIN 30 pg (25-35); MEAN CORPUSCULAR HGB CONC 33 g/dL (31-37); MEAN CORPUSCULAR VOLUME 91 fL (79-100); MONO # 0.2 x10^3/uL (0.0-1.1); MONO % 4 % (0-9); NEUT # 3.3 x10^3/uL (1.8-7.7); NEUT % 86 % (31-73); PLATELET COUNT 373 x10^3/uL (140-400); RED BLOOD COUNT 4.11 x10^6/uL (3.50-5.40); RED CELL DISTRIBUTION WIDTH 13.4 % (11.5-14.5); WHITE BLOOD COUNT 3.8 x10^3/uL (4.0-11.0)
[2021-12-25 20:16] LABS: BACTERIA,URINE FEW /HPF (0-FEW)
[2021-12-25 20:22] LABS: CALCIUM 9.7 mg/dL (8.5-10.1); CREATININE 0.9 mg/dL (0.6-1.0); GFR 61.5; POTASSIUM 4.2 mmol/L (3.5-5.1)
[2021-12-25 20:28] LABS: ALBUMIN 3.4 g/dL (3.4-5.0); ALBUMIN/GLOBULIN RATIO 0.8 (1.0-1.7); TOTAL BILIRUBIN 0.4 mg/dL (0.2-1.0); TOTAL PROTEIN 7.9 g/dL (6.4-8.2)
--- NOTE | 2021-12-25 20:44 | RAD ---
EXAM: AP View of the chest DATE: 12/25/2021 8:20 PM INDICATION: Reason: fever, vomiting / Spl. Instructions: / History: COMPARISON: No Prior FINDINGS: The heart is not enlarged. Mediastinal and hilar contours are normal. Lungs are clear. No pleural effusion or pneumothorax. Severe right shoulder joint osteoarthritis with high riding right humeral head suggesting rotator cuf f tear. IMPRESSION: 1. No radiographic evidence for acute cardiopulmonary process. Electronically signed by: Wilbert Moore MD (12/25/2021 8:42 PM) [facility]
[2021-12-25] MEDS ORDERED: CONTRAST GIVEN. MC PRN (20:45)
[2021-12-25] MEDS ORDERED: IOHEXOL 300 MG/ML 100ML VIAL. IV ONE (20:45)
[2021-12-25 21:18] LABS: INFLUENZA A PATIENT NEGATIVE (NEGATIVE); INFLUENZA B PATIENT NEGATIVE (NEGATIVE)
--- NOTE | 2021-12-25 22:14 | RAD ---
CT CERVICAL SPINE WO History:Reason: post operative fever / Spl. Instructions: / History: Technique: Noncontrast CT imaging was performed of the cervical spine. Multiplanar images are reviewe d. Exposure: One or more of the following individualized dose reduction techniques were utilized for thi s examination: 1. Automated exposure control 2. Adjustment of the mA and/or kV according to patient size 3. Use of iterative reconstruction technique. Comparison: None Findings: Recent anterior stabilization and interbody fusion C3-C5. Prior anterior stabilization device at C6. Bony intervertebral fusion well incorporated facet C5-C6. Unorganized fluid with foci of gas within t he retropharynx extending to right lateral neck. There is mild mass effect on the adjacent pharynx. Normal vertebral body height. No acute fracture. Grade 1 anterolisthesis C4 on C5 and C7 on T1. Degen erative disc changes most prominent C6-C7. Multilevel facet arthropathy, left greater than right. Mil d canal narrowing most prominent C4-C5. Multilevel neuroforaminal narrowing. Impression: 1. Recent anterior stabilization and interbody fusion C3-C5 with adjacent unorganized retropharyngea l and right lateral neck fluid and gas, likely postoperative. Recommend follow-up Electronically signed by: Aldo Arroyo DO (12/25/2021 10:12 PM) [facility]
--- NOTE | 2021-12-25 22:34 | RAD ---
INDICATION: Reason: abdominal pain, fever, vomiting / Spl. Instructions: [id number] 75ML [phone] / History: COMPARISON: None. TECHNIQUE: Axial CT images were obtained through the abdomen and pelvis with intravenous contrast. One or more of the following individualized dose reduction techniques were utilized for this examinat ion: 1. Automated exposure control; 2. Adjustment of the mA and/or kV according to patient size; 3 . Use of iterative reconstruction technique. FINDINGS: Vascular: Scattered atherosclerotic disease. Fat-containing right inguinal hernia. Hepatobiliary: Low-density lesions are seen scattered throughout the liver with many of the larger 1' s having the appearance of cystic lesions but many of not well characterized secondary to small size. Gallbladder is contracted. Pancreas: No peripancreatic edema. Spleen: Calcified granulomas of spleen. Renal/Bladder: Low-density lesion of the right kidney measuring approximately 12 mm. Additional numer ous subcentimeter low-density bilateral renal lesions which are not well characterized on this exam. No hydronephrosis. Urinary bladder is partially distended. Gastrointestinal: Colonic diverticulosis. The suspected appendix does not appear grossly inflamed. No dilated loops of bowel to suggest obstruction. Severe degenerative changes the hips. Scoliotic curvature of the spine with severe degenerative changes with multilevel central canal and n eural foraminal stenosis. There are some probable vertebral body hemangiomas. Grade 1 anterolisthesis of L4 on L5 and L3 on 4. IMPRESSION: * No evidence of bowel obstruction or appendicitis. * No hydronephrosis. There are multiple low-density renal lesions which are not well characterize gi veronica the small size. * Numerous low-density liver lesions with some of the larger 1's having the appearance of cystic les ions and many of them too small to characterize on this exam. Electronically signed by: Feliz Andrade MD (12/25/2021 10:32 PM) [id number]
[2021-12-25] MEDS ORDERED: ONDANSETRON PF 4 MG/2 ML VIAL. IVP PRN (23:30)
[2021-12-25] MEDS ORDERED: fentaNYL PF VIAL 100 MCG/2 ML VIAL IVP PRN (23:30)
[2021-12-26 01:35] VITALS: BP 135/93
--- NOTE | 2021-12-26 01:35 | NUR ---
Admit from ER. Had anterior cervical surgery 12/19/[address] Lerner. Discharged home on 12/20/21. New c/o dizziness, no visual problems, "phlegm-y throat and post nasal drip to the point of 'not being able to breathe good', taste of blood in her mouth, 'sore throat', occasional dysphagia w/ food, chills, nausea and vomiting after dinner tonight." States neck pain in better, wearing C collar. Incision healing, no drainage, slightly swollen to right side of neck. Started Prednisone today, has had 3 pills of taper. Also c/o passing "dark black stool" today. C/o bruising easily, unknown reason why.
[2021-12-26 05:01] VITALS: BP 153/70
--- NOTE | 2021-12-26 05:03 | NUR ---
Patient states "I can't catch my breath". Visibly trembling. Points to center of chest. Showed patient how to deep breathe slow and regular in nose and out mouth. Speaks in full sentences. RA SpO2 94%. Assisted to BSC then recliner. Appears to be anxious more than dyspneic. Stayed w/ patient and talked w/ her then gave her some Fentanyl. TV on for distraction.
--- NOTE | 2021-12-26 05:49 | NUR ---
Relaxed, TV off.
--- NOTE | 2021-12-26 06:12 | EKG ---
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
[2021-12-26 07:00] VITALS: BP 129/80
[2021-12-26] MEDS ORDERED: diphenhydrAMINE HCL 25 MG CAPSULE PO PRN (07:00)
[2021-12-26] MEDS ORDERED: CALCIUM CARBONATE 500 MG TAB.CHEW PO PRN (07:00)
[2021-12-26] MEDS ORDERED: ONDANSETRON PF 4 MG/2 ML VIAL. IVP PRN (07:00)
[2021-12-26] MEDS ORDERED: traMADol 50 MG TABLET PO PRN (07:00)
[2021-12-26] MEDS ORDERED: 0.9 % SODIUM CHLORIDE 10 ML DISP.SYRIN. IV PRN (07:00)
[2021-12-26] MEDS ORDERED: NALOXONE 0.4 MG/ML VIAL. IV PRN (07:00)
[2021-12-26] MEDS ORDERED: ACETAMINOPHEN 325 MG TABLET. PO PRN ×2 (07:00)
[2021-12-26] MEDS ORDERED: MAG HYDROX/ALUMINUM HYD/SIMETH 30 ML ORAL.SUSP PO PRN (07:00)
[2021-12-26] MEDS: HYDROcodone/APAP 5/325MG 1 TAB TABLET PO PRN (08:08)
[2021-12-26] MEDS: METHOCARBAMOL 750 MG TABLET PO PRN ×2 (08:08→20:53)
[2021-12-26] MEDS: GABAPENTIN 100 MG CAPSULE. PO SCH (08:09)
[2021-12-26] MEDS: DOCUSATE SODIUM 100 MG CAPSULE. PO SCH ×2 (08:09→20:54)
[2021-12-26] MEDS: LOSARTAN POTASSIUM 25 MG TABLET. PO SCH (08:15)
[2021-12-26] MEDS ORDERED: NON FORMULARY ITEM (Armodafinil (Nuvigil) 1 TAB) PO SCH (09:00)
[2021-12-26] MEDS ORDERED: GADOTERATE 5 MMOL/10ML VIAL. IVP ONE (10:45)
--- NOTE | 2021-12-26 13:19 | PDOC1 ---
History and Physical Date of Admission Date of Admission DATE: 12/26/21 TIME: 13:19 History of Present Illness History of Present Illness Ms. Malik is a 71 year old female who presents with nausea, vomiting, chills, low mid abdominal pain all starting today. She states she had a cervical discectomy on November 21 and she had been having some back of her neck pain and stiffness but she states is the same as she has had since after surgery. She states she talked to Dr. Lerner nurse practitioner Sophy today and start her on a steroid for inflammation to help. She states they stated that this is just a normal postoperative pain that she is having. She is also on Robaxin and hydrocodone. Patient states she just does not feel well and states at times she has postnasal drip and it chokes her.. Denies chest pain, cough, urinary symptoms, more neck stiffness since surgery, more pain since surgery, dizziness, headache, focal weakness, shortness of breath, nasal congestion, sore throat, numbness or tingling, vision change. Patient has a history of cervical fusion, high cholesterol and osteoarthritis. Past Medical History Cardiovascular: HTN, Other CENTRAL NERVOUS SYSTEM: Other (dizzyness) Psych: No pertinent hx Musculoskeletal: low back pain, Osteoarthritis Rheumatologic: No pertinent hx Past Surgical History Past Surgical History: Other (cervical laminectomy last week) Family History Family History: No Significant Social History Smoke: No ALCOHOL: none Drugs: None Current Medications Current Medications Current Medications Sodium Chloride 1,000 ml @ 1,000 mls/hr Q1H IV Last administered on 12/25/21at 20:47; Start 12/25/21 at 20:00; Stop 12/25/21 at 20:59; Status DC Ondansetron HCl (Zofran) 4 mg 1X ONCE IVP Last administered on 12/25/21at 20:47; Start 12/25/21 at 20:00; Stop 12/25/21 at 20:06; Status DC Iohexol (Omnipaque 300 Mg/ml) 75 ml 1X ONCE IV Last administered on 12/25/21at 20:45; Start 12/25/21 at 20:45; Stop 12/25/21 at 20:46; Status DC Info (CONTRAST GIVEN -- Rx MONITORING) 1 each PRN DAILY PRN MC SEE COMMENTS; Start 12/25/21 at 20:45; Stop 12/27/21 at 20:44 Ondansetron HCl (Zofran) 4 mg PRN Q8HRS PRN IVP NAUSEA/VOMITING 1ST CHOICE; Start 12/25/21 at 23:30; Stop 12/26/21 at 23:29 Fentanyl Citrate (Fentanyl 2ml Vial) 50 mcg PRN Q3HRS PRN IVP SEVERE PAIN 7-10 Last administered on 12/26/21at 05:02; Start 12/25/21 at 23:30; Stop 12/26/21 at 23:29 Atorvastatin Calcium (Lipitor) 40 mg HS PO ; Start 12/26/21 at 21:00 Docusate Sodium (Colace) 100 mg BID PO Last administered on 12/26/21at 08:09; Start 12/26/21 at 09:00 Acetaminophen/ Hydrocodone Bitart (Lortab 5/325) 1 tab PRN Q4HRS PRN PO MILD PAIN 1-3 Last administered on 12/26/21at 08:08; Start 12/26/21 at 07:00 Losartan Potassium (Cozaar) 50 mg DAILY PO Last administered on 12/26/21at 08:15; Start 12/26/21 at 09:00 Methocarbamol (Robaxin) 750 mg PRN TID PRN PO MUSCLE SPASMS Last administered on 12/26/21at 08:08; Start 12/26/21 at 07:00 Tramadol HCl (Ultram) 50 mg PRN DAILY PRN PO MILD TO MODERATE PAIN; Start 12/26/21 at 07:00 Amlodipine Besylate (Norvasc) 5 mg DAILY PO Last administered on 12/26/21at 08:15; Start 12/26/21 at 09:00 Non-Formulary Medication (Armodafinil (Nuvigil)) 1 tab DAILY PO ; Start 12/26/21 at 09:00; Stop 12/26/21 at 11:10; Status DC Gabapentin (Neurontin) 100 mg DAILYWBKFT PO Last administered on 12/26/21at 08:09; Start 12/26/21 at 08:00 Gabapentin (Neurontin) 300 mg HS PO ; Start 12/26/21 at 21:00 Acetaminophen (Tylenol) 650 mg PRN Q6HRS PRN PO MILD PAIN / TEMP > 100.3'F; Start 12/26/21 at 07:00 Al Hydroxide/Mg Hydroxide (Mylanta Plus Xs) 30 ml PRN Q3HRS PRN PO HEARTBURN / GAS; Start 12/26/21 at 07:00 Calcium Carbonate/ Glycine (Tums) 500 mg PRN Q3HRS PRN PO INDIGESTION Last administered on 12/26/21at 08:47; Start 12/26/21 at 07:00 Diphenhydramine HCl (Benadryl) 25 mg PRN Q6HRS PRN PO ITCHING; Start 12/26/21 at 07:00 Naloxone HCl (Narcan) 0.1 mg PRN Q2MIN PRN IV SEE COMMENTS; Start 12/26/21 at 07:00 Sodium Chloride (Normal Saline Flush) 3 ml QSHIFT PRN IV AFTER MEDS AND BLOOD DRAWS; Start 12/26/21 at 07:00 Acetaminophen (Tylenol) 650 mg PRN Q8HRS PRN PO MILD PAIN 1-3; Start 12/26/21 at 07:00 Ondansetron HCl (Zofran) 4 mg PRN Q6HRS PRN IVP NAUESA, 1ST CHOICE; Start 12/26/21 at 07:00 Lorazepam (Ativan Inj) 0.5 mg PRN Q4HRS PRN IVP ANXIETY / AGITATION; Start 12/26/21 at 09:30 Gadoterate Meglumine (Clariscan) 10 ml 1X ONCE IVP Last administered on 12/26/21at 11:35; Start 12/26/21 at 10:45; Stop 12/26/21 at 10:46; Status DC Active Scripts Active Colace (Docusate Sodium) 100 Mg Capsule 100 Mg PO BID Hydrocodone-Apap 5-325 (Hydrocodone Bit/Acetaminophen) 1 Tab Tablet 1 Tab PO PRN Q4HRS PRN Methocarbamol 750 Mg Tablet 750 Mg PO TID PRN Reported Tramadol Hcl 50 Mg Tablet 50 Mg PO DAILY PRN Nuvigil (Armodafinil) 250 Mg Tablet 1 Tab PO DAILY MDD 1 Tablet(s) 30 Days Gabapentin 600 Mg Tablet 300 Mg PO HS Gabapentin 600 Mg Tablet 100 Mg PO DAILYWBKFT Atorvastatin Calcium 20 Mg Tablet 40 Mg PO HS Losartan Potassium (Losartan Potassium) 25 Mg Tablet 50 Mg PO DAILY Amlodipine Besylate 2.5 Mg Tablet 5 Mg PO DAILY Allergies Allergies: Coded Allergies: No Known Drug Allergies (Unverified , 12/19/21) ROS General: YES: Fatigue; No: Chills, Night Sweats, Malaise, Appetite, Other PSYCHOLOGICAL ROS: YES: Anxiety Eyes: No Blurry vision, No Decreased vision, No Double vision, No Dry eyes, No Excessive tearing, No Eye Pain, No Itchy Eyes, No Loss of vision, No Photophobia, No Scotomata, No Uses contacts, No Uses glasses, No Other HEENT: No: Heacaches, Visual Changes, Hearing change, Nasal congestion, Nasal discharge, Oral lesions, Sinus pain, Sore Throat, Epistaxis, Sneezing, Snoring, Tinnitus, Vertigo, Vocal changes, Other Respiratory: No: Cough, Hemoptysis, Orthopnea, Pleuritic Pain, Shortness of breath, SOB with excertion, Sputum Changes, Stridor, Tachypnea, Wheezing, Other Cardiovascular: No Chest Pain, No Palpitations, No Orthopnea, No Paroxysmal Noc. Dyspnea, No Edema, No Lt Headedness, No Other Gastrointestinal: No Nausea, No Vomiting, No Abdominal Pain, No Diarrhea, No Constipation, No Melena, No Hematochezia, No Other Genitourinary: No Dysuria, No Frequency, No Incontinence, No Hematuria, No Retention, No Discharge, No Urgency, No Pain, No Flank Pain, No Other, No , No , No , No , No , No , No Musculoskeletal: Yes Joint Stiffness (neck); No Gait Disturbance, No Joint Pain, No Joint Swelling, No Muscle Pain, No Muscular Weakness, No Pain In:, No Swelling In:, No Other Neurological: No Behavorial Changes, No Bowel/Bladder ControlChng, No Confusion, No Dizziness, No Gait Disturbance, No Headaches, No Impaired Coord/balance, No Memory Loss, No Numbness/Tingling, No Seizures, No Speech Problems, No Tremors, No Visual Changes, No Weakness, No Other Skin: Yes Dry Skin, Yes Other (bruising ); No Eczema, No Hair Changes, No Lumps, No Mole Changes, No Mottling, No Nail Changes, No Pruritus, No Rash, No Skin Lesion Changes, No Acne Physical Exam General: Alert, No acute distress HEENT: PERRLA, EOMI Lungs: Clear to auscultation, Normal air movement Heart: S1S2, RRR, no murmurs Abdomen: Normal bowel sounds, Soft Rectal Exam: not examined Extremities: No edema Skin: No breakdown, Other (arm brusing , skin thin and dry) Neuro: Normal speech, Normal tone, Sensation intact Psych/Mental Status: Mental status NL Vitals Vitals Vital Signs Date Time Temp Pulse Resp B/P (MAP) Pulse Ox O2 Delivery O2 Flow Rate FiO2 12/26/21 08:38 94 Room Air 12/26/21 08:15 61 129/80 12/26/21 07:00 97.8 18 97.8 Labs Labs Laboratory Tests Test 12/25/21 19:40 12/25/21 19:54 12/25/21 20:53 12/25/21 23:00 Urine Collection Type Void Urine Color Yellow Urine Clarity Clear Urine pH 6.0 (<5.0-8.0) Urine Specific [place] 1.025 (1.000-1.030) Urine Protein Negative mg/dL (NEG-TRACE) Urine Glucose (UA) >=1000 mg/dL (NEG) Urine Ketones (Stick) Negative mg/dL (NEG) Urine Blood Trace (NEG) Urine Nitrite Negative (NEG) Urine Bilirubin Negative (NEG) Urine Urobilinogen Dipstick 0.2 mg/dL (0.2 mg/dL) Urine Leukocyte Esterase Trace (NEG) Urine RBC 1-2 /HPF (0-2) Urine WBC 1-4 /HPF (0-4) Urine Squamous Epithelial Cells Mod /LPF Urine Bacteria Few /HPF (0-FEW) Urine Mucus Slight /LPF White Blood Count 3.8 x10^3/uL (4.0-11.0) Red Blood Count 4.11 x10^6/uL (3.50-5.40) Hemoglobin 12.5 g/dL (12.0-15.5) Hematocrit 37.4 % (36.0-47.0) Mean Corpuscular Volume 91 fL (79-100) Mean Corpuscular Hemoglobin 30 pg (25-35) Mean Corpuscular Hemoglobin Concent 33 g/dL (31-37) Red Cell Distribution Width 13.4 % (11.5-14.5) Platelet Count 373 x10^3/uL (140-400) Neutrophils (%) (Auto) 86 % (31-73) Lymphocytes (%) (Auto) 10 % (24-48) Monocytes (%) (Auto) 4 % (0-9) Eosinophils (%) (Auto) 0 % (0-3) Basophils (%) (Auto) 0 % (0-3) Neutrophils # (Auto) 3.3 x10^3/uL (1.8-7.7) Lymphocytes # (Auto) 0.4 x10^3/uL (1.0-4.8) Monocytes # (Auto) 0.2 x10^3/uL (0.0-1.1) Eosinophils # (Auto) 0.0 x10^3/uL (0.0-0.7) Basophils # (Auto) 0.0 x10^3/uL (0.0-0.2) Sodium Level 136 mmol/L (136-145) Potassium Level 4.2 mmol/L (3.5-5.1) Chloride Level 99 mmol/L (98-107) Carbon Dioxide Level 25 mmol/L (21-32) Anion Gap 12 (6-14) Blood Urea Nitrogen 21 mg/dL (7-20) Creatinine 0.9 mg/dL (0.6-1.0) Estimated GFR (Cockcroft-Gault) 61.5 BUN/Creatinine Ratio 23 (6-20) Glucose Level 261 mg/dL (70-99) Lactic Acid Level 2.4 mmol/L (0.4-2.0) 1.4 mmol/L (0.4-2.0) Calcium Level 9.7 mg/dL (8.5-10.1) Total Bilirubin 0.4 mg/dL (0.2-1.0) Aspartate Amino Transf (AST/SGOT) 21 U/L (15-37) Alanine Aminotransferase (ALT/SGPT) 26 U/L (14-59) Alkaline Phosphatase 91 U/L (46-116) Troponin I High Sensitivity < 4 ng/L (4-50) Total Protein 7.9 g/dL (6.4-8.2) Albumin 3.4 g/dL (3.4-5.0) Albumin/Globulin Ratio 0.8 (1.0-1.7) Lipase 121 U/L (73-393) Influenza Type A Antigen Negative (NEGATIVE) Influenza Type B Antigen Negative (NEGATIVE) SARS-CoV-2 Antigen (Rapid) Negative (NEGATIVE) Laboratory Tests Test 12/25/21 19:40 12/25/21 19:54 12/25/21 20:53 12/25/21 23:00 Urine Collection Type Void Urine Color Yellow Urine Clarity Clear Urine pH 6.0 (<5.0-8.0) Urine Specific [place] 1.025 (1.000-1.030) Urine Protein Negative mg/dL (NEG-TRACE) Urine Glucose (UA) >=1000 mg/dL (NEG) Urine Ketones (Stick) Negative mg/dL (NEG) Urine Blood Trace (NEG) Urine Nitrite Negative (NEG) Urine Bilirubin Negative (NEG) Urine Urobilinogen Dipstick 0.2 mg/dL (0.2 mg/dL) Urine Leukocyte Esterase Trace (NEG) Urine RBC 1-2 /HPF (0-2) Urine WBC 1-4 /HPF (0-4) Urine Squamous Epithelial Cells Mod /LPF Urine Bacteria Few /HPF (0-FEW) Urine Mucus Slight /LPF White Blood Count 3.8 x10^3/uL (4.0-11.0) Red Blood Count 4.11 x10^6/uL (3.50-5.40) Hemoglobin 12.5 g/dL (12.0-15.5) Hematocrit 37.4 % (36.0-47.0) Mean Corpuscular Volume 91 fL (79-100) Mean Corpuscular Hemoglobin 30 pg (25-35) Mean Corpuscular Hemoglobin Concent 33 g/dL (31-37) Red Cell Distribution Width 13.4 % (11.5-14.5) Platelet Count 373 x10^3/uL (140-400) Neutrophils (%) (Auto) 86 % (31-73) Lymphocytes (%) (Auto) 10 % (24-48) Monocytes (%) (Auto) 4 % (0-9) Eosinophils (%) (Auto) 0 % (0-3) Basophils (%) (Auto) 0 % (0-3) Neutrophils # (Auto) 3.3 x10^3/uL (1.8-7.7) Lymphocytes # (Auto) 0.4 x10^3/uL (1.0-4.8) Monocytes # (Auto) 0.2 x10^3/uL (0.0-1.1) Eosinophils # (Auto) 0.0 x10^3/uL (0.0-0.7) Basophils # (Auto) 0.0 x10^3/uL (0.0-0.2) Sodium Level 136 mmol/L (136-145) Potassium Level 4.2 mmol/L (3.5-5.1) Chloride Level 99 mmol/L (98-107) Carbon Dioxide Level 25 mmol/L (21-32) Anion Gap 12 (6-14) Blood Urea Nitrogen 21 mg/dL (7-20) Creatinine 0.9 mg/dL (0.6-1.0) Estimated GFR (Cockcroft-Gault) 61.5 BUN/Creatinine Ratio 23 (6-20) Glucose Level 261 mg/dL (70-99) Lactic Acid Level 2.4 mmol/L (0.4-2.0) 1.4 mmol/L (0.4-2.0) Calcium Level 9.7 mg/dL (8.5-10.1) Total Bilirubin 0.4 mg/dL (0.2-1.0) Aspartate Amino Transf (AST/SGOT) 21 U/L (15-37) Alanine Aminotransferase (ALT/SGPT) 26 U/L (14-59) Alkaline Phosphatase 91 U/L (46-116) Troponin I High Sensitivity < 4 ng/L (4-50) Total Protein 7.9 g/dL (6.4-8.2) Albumin 3.4 g/dL (3.4-5.0) Albumin/Globulin Ratio 0.8 (1.0-1.7) Lipase 121 U/L (73-393) Influenza Type A Antigen Negative (NEGATIVE) Influenza Type B Antigen Negative (NEGATIVE) SARS-CoV-2 Antigen (Rapid) Negative (NEGATIVE) VTE Prophylaxis Ordered VTE Prophylaxis Devices: Yes VTE Pharmacological Prophylaxi: Yes Assessment/Plan Assessment/Plan globus sensation shortness of breath neck pain recent surgery last week for cervical stenosis, Dr. Lerner, anterior approach Justifications for Admission Other Justification TYLER RENTERIA MD Dec 26, 2021 13:19
--- NOTE | 2021-12-26 14:04 | RAD ---
MRI of the cervical spine without and with contrast 12/26/2021 CLINICAL HISTORY: Neck pain. Recent cervical fusion. TECHNIQUE: Unenhanced T1-weighted, T2-weighted and recovery sagittal and gradient echo, T2-weighted a nd T1-weighted axial images of the cervical spine were obtained. After the intravenous administration of 10 cc of Clariscan, enhanced T1-weighted sagittal and axial images of the cervical spine were obt ained. FINDINGS: Comparison is made to patient's CT scan of the cervical spine dated 12/25/2021. Mild lateral curvature of the cervical spine is seen convex to the right. There is straightening of t he normal cervical lordosis. The patient is post anterior discectomy and fusion using anterior plate and bone screws along with bone graft material at C5-6. Patient is post more recent anterior discecto my and fusion using an anterior plate, bone screws and bone graft material at C3-4 and C4-5. Degenera tive signal changes and loss of height are seen involving the remaining discs of the cervical spine. Degenerative signal changes are seen within the marrow surrounding these discs. No area of abnormal s ignal intensity is seen involving the cervical spinal cord. An irregular poorly defined fluid signal intensity with associated magnetic susceptibility artifact i s seen extending from the prevertebral soft tissues anteriorly and laterally throughout the right nec k. This is better visualized on the patient's CT scan and is felt to be postoperative in nature. No w ell-defined abscess is seen. At the C2-3 disc space there is a mild generalized disc bulge. Degenerative changes are seen involvin g the uncovertebral and facet joints, left greater than right. These findings do not result in signif icant central spinal canal stenosis. Mild left neural foraminal stenosis is seen. The right neural fo ramen is patent. At the C3-4 disc space degenerative changes are seen involving the uncovertebral and facet joints, le ft greater than right is findings efface the anterior CSF without resulting in significant central sp inal canal stenosis. Moderate left neural foraminal stenosis is seen. The right neural foramen is pat ent. At the C4-5 disc space posterior vertebral body osteophyte formation is seen. Degenerative changes ar e seen involving the uncovertebral and facet joints, left greater than right. These findings efface t he anterior and posterior CSF resulting in mild to moderate central spinal canal stenosis with mild c ord impingement. Mild left neural foraminal stenosis is seen. The right neural foramen is patent. At the C5-6 disc space degenerative changes are seen involving the uncovertebral and facet joints juan a aterally. These findings do not result in significant central spinal canal or neural foraminal stenos is. At the C3-6-7 disc space there is a moderate generalized disc bulge. Degenerative changes are seen in volving the uncovertebral and facet joints bilaterally. These findings efface the anterior CSF result ing in mild central spinal canal stenosis without evidence of cord impingement. Mild bilateral neural foraminal stenosis is seen. At the C7-T1 disc space there is a mild generalized disc bulge. Degenerative changes are seen involvi ng the facet joints bilaterally. These . Central spinal canal or neural foraminal stenosis. IMPRESSION: 1. Post anterior discectomy and fusion at C3-4, C4-5 and C5-6. Irregular poorly defined fluid is seen extending from the prevertebral soft tissues anteriorly and laterally to the right. This is felt to be postoperative. No well-defined abscess is seen. 2. Degenerative changes are seen throughout the cervical spine. These findings result in mild to mode rate central spinal canal stenosis with mild cord impingement at C4-5 and mild central spinal canal s tenosis without evidence of cord impingement at C6-7. Mild left neural foraminal stenosis is seen at C2-3 and C4-5. Moderate left neural foraminal stenosis is seen at C3-4. Mild bilateral neural foramin al stenosis is seen at C6-7. Electronically signed by: Yoan Ann MD (12/26/2021 2:02 PM) [id number]
--- NOTE | 2021-12-26 14:05 | PDOC ---
PROGRESS NOTES Date of Service DATE: 12/26/21 TIME: 13:58 Subjective Subjective Patient seen and examined s/p ACDF C3-4, C4-5 and removal of hardware C5 a week ago c/o continued neck pain c/o cough developed nausea, chills last evening and came to ER for evaluation Objective Objective Vital Signs Date Time Temp Pulse Resp B/P (MAP) Pulse Ox O2 Delivery O2 Flow Rate FiO2 12/26/21 08:38 94 Room Air 12/26/21 08:15 61 129/80 12/26/21 07:00 97.8 18 97.8 Intake and Output 12/26/21 07:00 Intake Total 240 ml Balance 240 ml Intake Oral 240 ml Physical Exam General: Alert, Oriented X3, Cooperative, Other (voice clear) MUSCULOSKELETAL: Other (LAMB) Neuro: Normal speech Skin: Other (incision dry, flat) Plan Plan of Care Reviewed Cervical CT and MRI, retropharyngeal and right lateral neck fluid and gas, likely postoperative. There is no enhancement. D/W radiologist, Dr. Bird who does not feel this appears to be infection SCDs activity as tolerated soft collar for comfort will have speech therapy eval with swallow study tomorrow if cough continues D/W RN Comment Review of Relevant I have reviewed the following items janay (where applicable) has been applied. Labs Laboratory Tests Test 12/25/21 19:40 12/25/21 19:54 12/25/21 20:53 12/25/21 23:00 Urine Collection Type Void Urine Color Yellow Urine Clarity Clear Urine pH 6.0 (<5.0-8.0) Urine Specific [place] 1.025 (1.000-1.030) Urine Protein Negative mg/dL (NEG-TRACE) Urine Glucose (UA) >=1000 mg/dL (NEG) Urine Ketones (Stick) Negative mg/dL (NEG) Urine Blood Trace (NEG) Urine Nitrite Negative (NEG) Urine Bilirubin Negative (NEG) Urine Urobilinogen Dipstick 0.2 mg/dL (0.2 mg/dL) Urine Leukocyte Esterase Trace (NEG) Urine RBC 1-2 /HPF (0-2) Urine WBC 1-4 /HPF (0-4) Urine Squamous Epithelial Cells Mod /LPF Urine Bacteria Few /HPF (0-FEW) Urine Mucus Slight /LPF White Blood Count 3.8 x10^3/uL (4.0-11.0) Red Blood Count 4.11 x10^6/uL (3.50-5.40) Hemoglobin 12.5 g/dL (12.0-15.5) Hematocrit 37.4 % (36.0-47.0) Mean Corpuscular Volume 91 fL (79-100) Mean Corpuscular Hemoglobin 30 pg (25-35) Mean Corpuscular Hemoglobin Concent 33 g/dL (31-37) Red Cell Distribution Width 13.4 % (11.5-14.5) Platelet Count 373 x10^3/uL (140-400) Neutrophils (%) (Auto) 86 % (31-73) Lymphocytes (%) (Auto) 10 % (24-48) Monocytes (%) (Auto) 4 % (0-9) Eosinophils (%) (Auto) 0 % (0-3) Basophils (%) (Auto) 0 % (0-3) Neutrophils # (Auto) 3.3 x10^3/uL (1.8-7.7) Lymphocytes # (Auto) 0.4 x10^3/uL (1.0-4.8) Monocytes # (Auto) 0.2 x10^3/uL (0.0-1.1) Eosinophils # (Auto) 0.0 x10^3/uL (0.0-0.7) Basophils # (Auto) 0.0 x10^3/uL (0.0-0.2) Sodium Level 136 mmol/L (136-145) Potassium Level 4.2 mmol/L (3.5-5.1) Chloride Level 99 mmol/L (98-107) Carbon Dioxide Level 25 mmol/L (21-32) Anion Gap 12 (6-14) Blood Urea Nitrogen 21 mg/dL (7-20) Creatinine 0.9 mg/dL (0.6-1.0) Estimated GFR (Cockcroft-Gault) 61.5 BUN/Creatinine Ratio 23 (6-20) Glucose Level 261 mg/dL (70-99) Lactic Acid Level 2.4 mmol/L (0.4-2.0) 1.4 mmol/L (0.4-2.0) Calcium Level 9.7 mg/dL (8.5-10.1) Total Bilirubin 0.4 mg/dL (0.2-1.0) Aspartate Amino Transf (AST/SGOT) 21 U/L (15-37) Alanine Aminotransferase (ALT/SGPT) 26 U/L (14-59) Alkaline Phosphatase 91 U/L (46-116) Troponin I High Sensitivity < 4 ng/L (4-50) Total Protein 7.9 g/dL (6.4-8.2) Albumin 3.4 g/dL (3.4-5.0) Albumin/Globulin Ratio 0.8 (1.0-1.7) Lipase 121 U/L (73-393) Influenza Type A Antigen Negative (NEGATIVE) Influenza Type B Antigen Negative (NEGATIVE) SARS-CoV-2 Antigen (Rapid) Negative (NEGATIVE) Laboratory Tests Test 12/25/21 19:40 12/25/21 19:54 12/25/21 20:53 12/25/21 23:00 Urine Collection Type Void Urine Color Yellow Urine Clarity Clear Urine pH 6.0 (<5.0-8.0) Urine Specific [place] 1.025 (1.000-1.030) Urine Protein Negative mg/dL (NEG-TRACE) Urine Glucose (UA) >=1000 mg/dL (NEG) Urine Ketones (Stick) Negative mg/dL (NEG) Urine Blood Trace (NEG) Urine Nitrite Negative (NEG) Urine Bilirubin Negative (NEG) Urine Urobilinogen Dipstick 0.2 mg/dL (0.2 mg/dL) Urine Leukocyte Esterase Trace (NEG) Urine RBC 1-2 /HPF (0-2) Urine WBC 1-4 /HPF (0-4) Urine Squamous Epithelial Cells Mod /LPF Urine Bacteria Few /HPF (0-FEW) Urine Mucus Slight /LPF White Blood Count 3.8 x10^3/uL (4.0-11.0) Red Blood Count 4.11 x10^6/uL (3.50-5.40) Hemoglobin 12.5 g/dL (12.0-15.5) Hematocrit 37.4 % (36.0-47.0) Mean Corpuscular Volume 91 fL (79-100) Mean Corpuscular Hemoglobin 30 pg (25-35) Mean Corpuscular Hemoglobin Concent 33 g/dL (31-37) Red Cell Distribution Width 13.4 % (11.5-14.5) Platelet Count 373 x10^3/uL (140-400) Neutrophils (%) (Auto) 86 % (31-73) Lymphocytes (%) (Auto) 10 % (24-48) Monocytes (%) (Auto) 4 % (0-9) Eosinophils (%) (Auto) 0 % (0-3) Basophils (%) (Auto) 0 % (0-3) Neutrophils # (Auto) 3.3 x10^3/uL (1.8-7.7) Lymphocytes # (Auto) 0.4 x10^3/uL (1.0-4.8) Monocytes # (Auto) 0.2 x10^3/uL (0.0-1.1) Eosinophils # (Auto) 0.0 x10^3/uL (0.0-0.7) Basophils # (Auto) 0.0 x10^3/uL (0.0-0.2) Sodium Level 136 mmol/L (136-145) Potassium Level 4.2 mmol/L (3.5-5.1) Chloride Level 99 mmol/L (98-107) Carbon Dioxide Level 25 mmol/L (21-32) Anion Gap 12 (6-14) Blood Urea Nitrogen 21 mg/dL (7-20) Creatinine 0.9 mg/dL (0.6-1.0) Estimated GFR (Cockcroft-Gault) 61.5 BUN/Creatinine Ratio 23 (6-20) Glucose Level 261 mg/dL (70-99) Lactic Acid Level 2.4 mmol/L (0.4-2.0) 1.4 mmol/L (0.4-2.0) Calcium Level 9.7 mg/dL (8.5-10.1) Total Bilirubin 0.4 mg/dL (0.2-1.0) Aspartate Amino Transf (AST/SGOT) 21 U/L (15-37) Alanine Aminotransferase (ALT/SGPT) 26 U/L (14-59) Alkaline Phosphatase 91 U/L (46-116) Troponin I High Sensitivity < 4 ng/L (4-50) Total Protein 7.9 g/dL (6.4-8.2) Albumin 3.4 g/dL (3.4-5.0) Albumin/Globulin Ratio 0.8 (1.0-1.7) Lipase 121 U/L (73-393) Influenza Type A Antigen Negative (NEGATIVE) Influenza Type B Antigen Negative (NEGATIVE) SARS-CoV-2 Antigen (Rapid) Negative (NEGATIVE) Medications Current Medications Sodium Chloride 1,000 ml @ 1,000 mls/hr Q1H IV Last administered on 12/25/21at 20:47; Start 12/25/21 at 20:00; Stop 12/25/21 at 20:59; Status DC Ondansetron HCl (Zofran) 4 mg 1X ONCE IVP Last administered on 12/25/21at 20:47; Start 12/25/21 at 20:00; Stop 12/25/21 at 20:06; Status DC Iohexol (Omnipaque 300 Mg/ml) 75 ml 1X ONCE IV Last administered on 12/25/21at 20:45; Start 12/25/21 at 20:45; Stop 12/25/21 at 20:46; Status DC Info (CONTRAST GIVEN -- Rx MONITORING) 1 each PRN DAILY PRN MC SEE COMMENTS; Start 12/25/21 at 20:45; Stop 12/27/21 at 20:44 Ondansetron HCl (Zofran) 4 mg PRN Q8HRS PRN IVP NAUSEA/VOMITING 1ST CHOICE; Start 12/25/21 at 23:30; Stop 12/26/21 at 23:29 Fentanyl Citrate (Fentanyl 2ml Vial) 50 mcg PRN Q3HRS PRN IVP SEVERE PAIN 7-10 Last administered on 12/26/21at 05:02; Start 12/25/21 at 23:30; Stop 12/26/21 at 23:29 Atorvastatin Calcium (Lipitor) 40 mg HS PO ; Start 12/26/21 at 21:00 Docusate Sodium (Colace) 100 mg BID PO Last administered on 12/26/21at 08:09; Start 12/26/21 at 09:00 Acetaminophen/ Hydrocodone Bitart (Lortab 5/325) 1 tab PRN Q4HRS PRN PO MILD PAIN 1-3 Last administered on 12/26/21at 08:08; Start 12/26/21 at 07:00 Losartan Potassium (Cozaar) 50 mg DAILY PO Last administered on 12/26/21at 08:15; Start 12/26/21 at 09:00 Methocarbamol (Robaxin) 750 mg PRN TID PRN PO MUSCLE SPASMS Last administered on 12/26/21at 08:08; Start 12/26/21 at 07:00 Tramadol HCl (Ultram) 50 mg PRN DAILY PRN PO MILD TO MODERATE PAIN; Start 12/26/21 at 07:00 Amlodipine Besylate (Norvasc) 5 mg DAILY PO Last administered on 12/26/21at 08:15; Start 12/26/21 at 09:00 Non-Formulary Medication (Armodafinil (Nuvigil)) 1 tab DAILY PO ; Start 12/26/21 at 09:00; Stop 12/26/21 at 11:10; Status DC Gabapentin (Neurontin) 100 mg DAILYWBKFT PO Last administered on 12/26/21at 08:09; Start 12/26/21 at 08:00 Gabapentin (Neurontin) 300 mg HS PO ; Start 12/26/21 at 21:00 Acetaminophen (Tylenol) 650 mg PRN Q6HRS PRN PO MILD PAIN / TEMP > 100.3'F; Start 12/26/21 at 07:00 Al Hydroxide/Mg Hydroxide (Mylanta Plus Xs) 30 ml PRN Q3HRS PRN PO HEARTBURN / GAS; Start 12/26/21 at 07:00 Calcium Carbonate/ Glycine (Tums) 500 mg PRN Q3HRS PRN PO INDIGESTION Last administered on 12/26/21at 08:47; Start 12/26/21 at 07:00 Diphenhydramine HCl (Benadryl) 25 mg PRN Q6HRS PRN PO ITCHING; Start 12/26/21 at 07:00 Naloxone HCl (Narcan) 0.1 mg PRN Q2MIN PRN IV SEE COMMENTS; Start 12/26/21 at 07:00 Sodium Chloride (Normal Saline Flush) 3 ml QSHIFT PRN IV AFTER MEDS AND BLOOD DRAWS; Start 12/26/21 at 07:00 Acetaminophen (Tylenol) 650 mg PRN Q8HRS PRN PO MILD PAIN 1-3; Start 12/26/21 at 07:00 Ondansetron HCl (Zofran) 4 mg PRN Q6HRS PRN IVP NAUESA, 1ST CHOICE; Start 12/26/21 at 07:00 Lorazepam (Ativan Inj) 0.5 mg PRN Q4HRS PRN IVP ANXIETY / AGITATION; Start 12/26/21 at 09:30 Gadoterate Meglumine (Clariscan) 10 ml 1X ONCE IVP Last administered on 12/26/21at 11:35; Start 12/26/21 at 10:45; Stop 12/26/21 at 10:46; Status DC Active Scripts Active Colace (Docusate Sodium) 100 Mg Capsule 100 Mg PO BID Hydrocodone-Apap 5-325 (Hydrocodone Bit/Acetaminophen) 1 Tab Tablet 1 Tab PO PRN Q4HRS PRN Methocarbamol 750 Mg Tablet 750 Mg PO TID PRN Reported Tramadol Hcl 50 Mg Tablet 50 Mg PO DAILY PRN Nuvigil (Armodafinil) 250 Mg Tablet 1 Tab PO DAILY MDD 1 Tablet(s) 30 Days Gabapentin 600 Mg Tablet 300 Mg PO HS Gabapentin 600 Mg Tablet 100 Mg PO DAILYWBKFT Atorvastatin Calcium 20 Mg Tablet 40 Mg PO HS Losartan Potassium (Losartan Potassium) 25 Mg Tablet 50 Mg PO DAILY Amlodipine Besylate 2.5 Mg Tablet 5 Mg PO DAILY Vitals/I & O Vital Sign - Last 24 Hours 12/25/21 12/25/21 12/25/21 12/26/21 19:26 22:42 23:42 00:42 Temp 98.7 98.7 Pulse 97 68 64 64 Resp 18 17 16 18 B/P (MAP) 135/82 (99) 131/78 (95) 125/80 (95) 131/71 (91) Pulse Ox 95 97 95 96 O2 Delivery Room Air Room Air Room Air Room Air 12/26/21 12/26/21 12/26/21 12/26/21 01:15 01:35 02:41 03:00 Temp 98.0 98.0 Pulse 64 75 Resp 17 14 18 B/P (MAP) 137/71 (93) 135/93 (107) Pulse Ox 98 98 O2 Delivery Room Air Room Air Room Air 12/26/21 12/26/21 12/26/21 12/26/21 05:01 05:02 07:00 07:45 Temp 97.4 97.8 97.4 97.8 Pulse 58 61 Resp 28 28 18 B/P (MAP) 153/70 (97) 129/80 (96) Pulse Ox 94 94 97 O2 Delivery Room Air Room Air Room Air Room Air 12/26/21 12/26/21 12/26/21 12/26/21 08:08 08:15 08:15 08:38 Pulse 61 61 B/P (MAP) 129/80 129/80 Pulse Ox 94 94 O2 Delivery Room Air Room Air Intake and Output 12/25/21 12/25/21 12/26/21 15:00 23:00 07:00 Intake Total 240 ml Balance 240 ml Justifications for Admission Other Justification RHEA NORRIS MD Dec 26, 2021 14:05
[2021-12-26 15:00] VITALS: BP 115/70
[2021-12-26 19:00] VITALS: BP 117/70
[2021-12-26] MEDS ORDERED: ATORVASTATIN CALCIUM 20 MG TABLET PO SCH (21:00)
[2021-12-26] MEDS ORDERED: GABAPENTIN 300 MG CAPSULE. PO SCH (21:00)
[2021-12-26 23:03] VITALS: BP 136/78
[2021-12-27 03:12] VITALS: BP 165/85
[2021-12-27 07:15] VITALS: BP 134/83
[2021-12-27] MEDS: LOSARTAN POTASSIUM 25 MG TABLET. PO SCH (08:15)
[2021-12-27] MEDS: DOCUSATE SODIUM 100 MG CAPSULE. PO SCH (08:15)
[2021-12-27] MEDS: GABAPENTIN 100 MG CAPSULE. PO SCH (08:15)
[2021-12-27] MEDS: METHOCARBAMOL 750 MG TABLET PO PRN ×2 (08:16→15:57)
[2021-12-27] MEDS: HYDROcodone/APAP 5/325MG 1 TAB TABLET PO PRN ×2 (08:20→15:58)
[2021-12-27 10:57] VITALS: BP 103/73
[2021-12-27] MEDS ORDERED: BARIUM SULFATE 40% (APPLE) 148 GM PWD. PO ONE (11:30)
[2021-12-27] MEDS ORDERED: ONDA-84 PO (12:50)
--- NOTE | 2021-12-27 12:52 | DISCH ---
DISCHARGE INSTRUCTIONS Condition on Discharge Condition on Discharge: Stable Activity After Discharge Activity Instructions for Disc: Activity as tolerated, Avoid exertion Other activity instructions: soft collar for comfort Bathing Instructions: Shower-keep dressing dry, No Tub Bath until see Lifting Instructions after Dis: No heavy lifting, No pulling or pushing, Do not lift >10 pounds Exercise Instruction after Dis: Progress as tolerated Driving Instructions after Dis: No driving for 2 weeks Weight Bearing Status after Di: No restrictions Diet after Discharge Diet after Discharge: Regular Additional Diet Restrictions: resume home diet, soft diet Diet Texture: Dysphagia Pureed, Regular Swallowing Supervision: None needed Wound Incision Care Wound/Incision Care: Ice to area for comfort, May get incision wet Other wound/incision instructi: no soaking incision, no direct water pressure Contacting the DRBrigette after DC Call your doctor for: Concerns you may have Follow-Up Follow up with: Dr. Norris as scheduled 01/03/22 Treatment/Equipment after DC Adaptive Equipment Issued: None RHEA NORRIS MD Dec 27, 2021 12:52
--- NOTE | 2021-12-27 13:00 | PDOC ---
PROGRESS NOTES Date of Service DATE: 12/27/21 TIME: 12:57 Subjective Subjective s/p ACDF C3-4, C4-5 and removal of hardware C5 12/19/21 overall feels better pain, N/V improved swallowing improved with soft foods and eating slowly Objective Objective Vital Signs Date Time Temp Pulse Resp B/P (MAP) Pulse Ox O2 Delivery O2 Flow Rate FiO2 12/27/21 10:57 97.3 80 18 103/73 (83) 95 Room Air 97.3 Intake and Output 12/27/21 07:00 # Voids 4 Physical Exam General: Alert, Oriented X3, Cooperative, No acute distress MUSCULOSKELETAL: Other (LAMB) Skin: Other (incision dry, soft, mild swelling) Plan Plan of Care ok to dc home f/u next week in office as scheduled, instructed to call with questions/ concerns Comment Review of Relevant I have reviewed the following items janay (where applicable) has been applied. Labs Laboratory Tests Test 12/25/21 19:40 12/25/21 19:54 12/25/21 20:53 12/25/21 23:00 Urine Collection Type Void Urine Color Yellow Urine Clarity Clear Urine pH 6.0 (<5.0-8.0) Urine Specific [place] 1.025 (1.000-1.030) Urine Protein Negative mg/dL (NEG-TRACE) Urine Glucose (UA) >=1000 mg/dL (NEG) Urine Ketones (Stick) Negative mg/dL (NEG) Urine Blood Trace (NEG) Urine Nitrite Negative (NEG) Urine Bilirubin Negative (NEG) Urine Urobilinogen Dipstick 0.2 mg/dL (0.2 mg/dL) Urine Leukocyte Esterase Trace (NEG) Urine RBC 1-2 /HPF (0-2) Urine WBC 1-4 /HPF (0-4) Urine Squamous Epithelial Cells Mod /LPF Urine Bacteria Few /HPF (0-FEW) Urine Mucus Slight /LPF White Blood Count 3.8 x10^3/uL (4.0-11.0) Red Blood Count 4.11 x10^6/uL (3.50-5.40) Hemoglobin 12.5 g/dL (12.0-15.5) Hematocrit 37.4 % (36.0-47.0) Mean Corpuscular Volume 91 fL (79-100) Mean Corpuscular Hemoglobin 30 pg (25-35) Mean Corpuscular Hemoglobin Concent 33 g/dL (31-37) Red Cell Distribution Width 13.4 % (11.5-14.5) Platelet Count 373 x10^3/uL (140-400) Neutrophils (%) (Auto) 86 % (31-73) Lymphocytes (%) (Auto) 10 % (24-48) Monocytes (%) (Auto) 4 % (0-9) Eosinophils (%) (Auto) 0 % (0-3) Basophils (%) (Auto) 0 % (0-3) Neutrophils # (Auto) 3.3 x10^3/uL (1.8-7.7) Lymphocytes # (Auto) 0.4 x10^3/uL (1.0-4.8) Monocytes # (Auto) 0.2 x10^3/uL (0.0-1.1) Eosinophils # (Auto) 0.0 x10^3/uL (0.0-0.7) Basophils # (Auto) 0.0 x10^3/uL (0.0-0.2) Sodium Level 136 mmol/L (136-145) Potassium Level 4.2 mmol/L (3.5-5.1) Chloride Level 99 mmol/L (98-107) Carbon Dioxide Level 25 mmol/L (21-32) Anion Gap 12 (6-14) Blood Urea Nitrogen 21 mg/dL (7-20) Creatinine 0.9 mg/dL (0.6-1.0) Estimated GFR (Cockcroft-Gault) 61.5 BUN/Creatinine Ratio 23 (6-20) Glucose Level 261 mg/dL (70-99) Lactic Acid Level 2.4 mmol/L (0.4-2.0) 1.4 mmol/L (0.4-2.0) Calcium Level 9.7 mg/dL (8.5-10.1) Total Bilirubin 0.4 mg/dL (0.2-1.0) Aspartate Amino Transf (AST/SGOT) 21 U/L (15-37) Alanine Aminotransferase (ALT/SGPT) 26 U/L (14-59) Alkaline Phosphatase 91 U/L (46-116) Troponin I High Sensitivity < 4 ng/L (4-50) Total Protein 7.9 g/dL (6.4-8.2) Albumin 3.4 g/dL (3.4-5.0) Albumin/Globulin Ratio 0.8 (1.0-1.7) Lipase 121 U/L (73-393) Influenza Type A Antigen Negative (NEGATIVE) Influenza Type B Antigen Negative (NEGATIVE) SARS-CoV-2 Antigen (Rapid) Negative (NEGATIVE) Microbiology 12/25/21 Blood Culture - Preliminary, Resulted NO GROWTH AFTER 1 DAY 12/25/21 Urine Culture - Final, Complete Medications Current Medications Sodium Chloride 1,000 ml @ 1,000 mls/hr Q1H IV Last administered on 12/25/21at 20:47; Start 12/25/21 at 20:00; Stop 12/25/21 at 20:59; Status DC Ondansetron HCl (Zofran) 4 mg 1X ONCE IVP Last administered on 12/25/21at 20:47; Start 12/25/21 at 20:00; Stop 12/25/21 at 20:06; Status DC Iohexol (Omnipaque 300 Mg/ml) 75 ml 1X ONCE IV Last administered on 12/25/21at 20:45; Start 12/25/21 at 20:45; Stop 12/25/21 at 20:46; Status DC Info (CONTRAST GIVEN -- Rx MONITORING) 1 each PRN DAILY PRN MC SEE COMMENTS; Start 12/25/21 at 20:45; Stop 12/27/21 at 20:44 Ondansetron HCl (Zofran) 4 mg PRN Q8HRS PRN IVP NAUSEA/VOMITING 1ST CHOICE; Start 12/25/21 at 23:30; Stop 12/26/21 at 23:29; Status DC Fentanyl Citrate (Fentanyl 2ml Vial) 50 mcg PRN Q3HRS PRN IVP SEVERE PAIN 7-10 Last administered on 12/26/21at 05:02; Start 12/25/21 at 23:30; Stop 12/26/21 at 23:29; Status DC Atorvastatin Calcium (Lipitor) 40 mg HS PO Last administered on 12/26/21at 20:54; Start 12/26/21 at 21:00 Docusate Sodium (Colace) 100 mg BID PO Last administered on 12/27/21at 08:15; Start 12/26/21 at 09:00 Acetaminophen/ Hydrocodone Bitart (Lortab 5/325) 1 tab PRN Q4HRS PRN PO MILD PAIN 1-3 Last administered on 12/27/21at 08:20; Start 12/26/21 at 07:00 Losartan Potassium (Cozaar) 50 mg DAILY PO Last administered on 12/27/21at 08:15; Start 12/26/21 at 09:00 Methocarbamol (Robaxin) 750 mg PRN TID PRN PO MUSCLE SPASMS Last administered on 12/27/21at 08:16; Start 12/26/21 at 07:00 Tramadol HCl (Ultram) 50 mg PRN DAILY PRN PO MILD TO MODERATE PAIN; Start 12/26/21 at 07:00 Amlodipine Besylate (Norvasc) 5 mg DAILY PO Last administered on 12/27/21at 08:16; Start 12/26/21 at 09:00 Non-Formulary Medication (Armodafinil (Nuvigil)) 1 tab DAILY PO ; Start 12/26/21 at 09:00; Stop 12/26/21 at 11:10; Status DC Gabapentin (Neurontin) 100 mg DAILYWBKFT PO Last administered on 12/27/21at 08:15; Start 12/26/21 at 08:00 Gabapentin (Neurontin) 300 mg HS PO Last administered on 12/26/21at 20:54; Start 12/26/21 at 21:00 Acetaminophen (Tylenol) 650 mg PRN Q6HRS PRN PO MILD PAIN / TEMP > 100.3'F; Start 12/26/21 at 07:00 Al Hydroxide/Mg Hydroxide (Mylanta Plus Xs) 30 ml PRN Q3HRS PRN PO HEARTBURN / GAS; Start 12/26/21 at 07:00 Calcium Carbonate/ Glycine (Tums) 500 mg PRN Q3HRS PRN PO INDIGESTION Last administered on 12/26/21at 08:47; Start 12/26/21 at 07:00 Diphenhydramine HCl (Benadryl) 25 mg PRN Q6HRS PRN PO ITCHING; Start 12/26/21 at 07:00 Naloxone HCl (Narcan) 0.1 mg PRN Q2MIN PRN IV SEE COMMENTS; Start 12/26/21 at 07:00 Sodium Chloride (Normal Saline Flush) 3 ml QSHIFT PRN IV AFTER MEDS AND BLOOD DRAWS; Start 12/26/21 at 07:00 Acetaminophen (Tylenol) 650 mg PRN Q8HRS PRN PO MILD PAIN 1-3; Start 12/26/21 at 07:00 Ondansetron HCl (Zofran) 4 mg PRN Q6HRS PRN IVP NAUESA, 1ST CHOICE; Start 12/26/21 at 07:00 Lorazepam (Ativan Inj) 0.5 mg PRN Q4HRS PRN IVP ANXIETY / AGITATION Last administered on 12/26/21at 20:54; Start 12/26/21 at 09:30 Gadoterate Meglumine (Clariscan) 10 ml 1X ONCE IVP Last administered on 12/26/21at 11:35; Start 12/26/21 at 10:45; Stop 12/26/21 at 10:46; Status DC Barium Sulfate (Varibar Thin Liquid Apple) 148 gm 1X ONCE PO ; Start 12/27/21 at 11:30; Stop 12/27/21 at 11:31; Status DC Active Scripts Active Colace (Docusate Sodium) 100 Mg Capsule 100 Mg PO BID Hydrocodone-Apap 5-325 (Hydrocodone Bit/Acetaminophen) 1 Tab Tablet 1 Tab PO PRN Q4HRS PRN Methocarbamol 750 Mg Tablet 750 Mg PO TID PRN Reported Tramadol Hcl 50 Mg Tablet 50 Mg PO DAILY PRN Nuvigil (Armodafinil) 250 Mg Tablet 1 Tab PO DAILY MDD 1 Tablet(s) 30 Days Gabapentin 600 Mg Tablet 300 Mg PO HS Gabapentin 600 Mg Tablet 100 Mg PO DAILYWBKFT Atorvastatin Calcium 20 Mg Tablet 40 Mg PO HS Losartan Potassium (Losartan Potassium) 25 Mg Tablet 50 Mg PO DAILY Amlodipine Besylate 2.5 Mg Tablet 5 Mg PO DAILY Vitals/I & O Vital Sign - Last 24 Hours 12/26/21 12/26/21 12/26/21 12/26/21 15:00 19:00 20:20 23:03 Temp 97.9 97.4 97.9 97.9 97.4 97.9 Pulse 68 60 63 Resp 18 20 16 B/P (MAP) 115/70 (85) 117/70 (86) 136/78 (97) Pulse Ox 98 97 93 O2 Delivery Room Air Room Air Room Air Room Air 3/1112/27/21 12/27/21 12/27/21 03:12 07:15 08:05 08:15 Temp 97.5 97.5 97.5 97.5 Pulse 61 73 73 Resp 18 16 B/P (MAP) 165/85 (111) 134/83 (100) 134/83 Pulse Ox 93 94 O2 Delivery Room Air Room Air Room Air 12/27/21 12/27/21 12/27/21 12/27/21 08:16 08:20 08:50 10:57 Temp 97.3 97.3 Pulse 73 80 Resp 18 B/P (MAP) 134/83 103/73 (83) Pulse Ox 94 94 95 O2 Delivery Room Air Room Air Room Air Justifications for Admission Other Justification PAOLA ORDONEZ RIG HAND Dec 27, 2021 13:00
--- NOTE | 2021-12-27 13:54 | RAD ---
VIDEO SWALLOW STUDY Reason for Examination: Reason: Oropharyngeal DYSPHAGIA,recent ACDF. With the patient in the lateral projection, using video observation and recording, the patient was as ked to swallow barium liquid, barium pudding, and cracker. Interpretation: Total fluoroscopy time was 1.7 minutes. 0 fluoroscopic spot images. There is no oral stage abnormality. There is complete pharyngeal contraction. There is no aspiration or penetration. There is piriform sinus residue with all consistencies, more so in the right piriform sinus. There is piriform sinus and vallecular residue with thicker consistencies. No significant eso phageal stage abnormality is appreciated. Impression: 1. No evidence of aspiration or penetration. 2. There is piriform sinus residue on the right. Please refer to speech pathology notes for further details. Electronically signed by: Abhijit Angulo MD (12/27/2021 1:52 PM) [id number]
[2021-12-27 14:57] VITALS: BP 108/72
--- NOTE | 2021-12-27 16:27 | NUR ---
Patient left with her friend around 1627. Soft collar in place for car ride and pain meds/muscle relaxer given. patient left with all her belongings. Education performed by Speech therapist in regards to swallowing difficulty. Discharge education gone over in multiple details by staff members. No concerns noted at discharge.
--- NOTE | 2021-12-29 16:33 | PDOC3 ---
[facility]-Discharge Summary Date of Admission: Date of Admission: Dec 26, 2021 Date of Discharge: Date of Discharge: Dec 27, 2021 Hospital Course: Hospital Course: Ms. Malik is a 71 year old female who presents with nausea, vomiting, chills, low mid abdominal pain all starting today. She states she had a cervical discectomy on November 21 and she had been having some back of her neck pain and stiffness but she states is the same as she has had since after surgery. She states she talked to Dr. Norris nurse practitioner Sophy today and start her on a steroid for inflammation to help. She states they stated that this is just a normal postoperative pain that she is having. She is also on Robaxin and hydrocodone. Patient states she just does not feel well and states at times she has postnasal drip and it chokes her.. Denies chest pain, cough, urinary symptoms, more neck stiffness since surgery, more pain since surgery, dizziness, headache, focal weakness, shortness of breath, nasal congestion, sore throat, numbness or tingling, vision change. Patient has a history of cervical fusion, high cholesterol and osteoarthritis. 12/27 Evaluate examined at bedside. Speech therapy today. If goes okay can discharge after. Greater than 30 minutes spent on discharge. Disposition: Disposition/Orders: D/C to Home Activity: Activity: Resume previous activity Diet: Diet: Regular Medications: Home Meds Active Scripts Ondansetron Hcl (ONDANSETRON HCL) 4 Mg Tablet, 1 TAB PO PRN Q6HRS for nausea, #30 TAB 1 Refill Prov:RHEA NORRIS MD 12/27/21 Docusate Sodium (COLACE) 100 Mg Capsule, 100 MG PO BID for constipation, #60 CAP Prov:RHEA NORRIS MD 12/20/21 Hydrocodone Bit/Acetaminophen (HYDROCODONE-APAP 5-325 ) 1 Tab Tablet, 1 TAB PO PRN Q4HRS PRN for MILD PAIN 1-3, #40 TAB Prov:RHEA NORRIS MD 12/20/21 Methocarbamol (METHOCARBAMOL) 750 Mg Tablet, 750 MG PO TID PRN for MUSCLE SPASMS, #60 TAB Prov:RHEA NORRIS MD 12/20/21 Reported Medications Tramadol Hcl (TRAMADOL HCL) 50 Mg Tablet, 50 MG PO DAILY PRN for PAIN, TAB 0 Refills 12/17/21 Armodafinil (NUVIGIL) 250 Mg Tablet, 1 TAB PO DAILY for MDD 1 Tablet(s) for 30 Days, #30 TAB 0 Refills 12/17/21 Gabapentin (GABAPENTIN) 600 Mg Tablet, 300 MG PO HS for NEUROGENIC PAIN, TAB 12/17/21 Gabapentin (GABAPENTIN) 600 Mg Tablet, 100 MG PO DAILYWBKFT for NEUROGENIC PAIN, TAB 12/17/21 Atorvastatin Calcium (ATORVASTATIN CALCIUM) 20 Mg Tablet, 40 MG PO HS for FOR CHOLESTEROL, #30 TAB 0 Refills 10/17/19 Losartan Potassium (LOSARTAN POTASSIUM ) 25 Mg Tablet, 50 MG PO DAILY for HYPERTENSION, TAB 10/17/19 Amlodipine Besylate (AMLODIPINE BESYLATE) 2.5 Mg Tablet, 5 MG PO DAILY for treat hypertension, TAB 10/17/19 Scheduled Amlodipine Besylate (Amlodipine Besylate), 5 MG PO DAILY, (Reported) Armodafinil (Nuvigil), 1 TAB PO DAILY, (Reported) Atorvastatin Calcium (Atorvastatin Calcium), 40 MG PO HS, (Reported) Docusate Sodium (Colace), 100 MG PO BID Gabapentin (Gabapentin), 100 MG PO DAILYWBKFT, (Reported) Gabapentin (Gabapentin), 300 MG PO HS, (Reported) Losartan Potassium (Losartan Potassium ), 50 MG PO DAILY, (Reported) Ondansetron Hcl (Ondansetron Hcl), 1 TAB PO PRN Q6HRS Scheduled PRN Hydrocodone Bit/Acetaminophen (Hydrocodone-Apap 5-325 ), 1 TAB PO PRN Q4HRS PRN for MILD PAIN 1-3 Methocarbamol (Methocarbamol), 750 MG PO TID PRN for MUSCLE SPASMS Tramadol Hcl (Tramadol Hcl), 50 MG PO DAILY PRN for PAIN, (Reported) Justicifation of Admission Dx: Justifications for Admission: Justification of Admission Dx: Yes (postop pain) LONG SAM MD Dec 29, 2021 16:33
== END 2021-12-27 16:40 | disposition home or self-care (01) | DRG 392 ==
LOC: ER 19:10 → 4 NORTH 23:20
PROVIDERS: ADMIT Internal Medicine; ATTEND Internal Medicine
DX: K29.70 Gastritis, unspecified, without bleeding (principal); F45.8 Other somatoform disorders; E78.00 Pure hypercholesterolemia, unspecified; I10 Essential (primary) hypertension; Z98.1 Arthrodesis status; M19.90 Unspecified osteoarthritis, unspecified site; M48.02 Spinal stenosis, cervical region; Z20.822 Contact with and (suspected) exposure to COVID-19
CPT/HCPCS: 36415; 71045; 72125; 72156; 74177; 74230; 80053; 81001; 83605; 83690; 84484; 85025; 87040; 87086; 87428; 93005; 96361; 96374; A9575; G0378; J2060; J2405; J3010; J7030; Q9967; 92526-GN; 92610-GN; 92611-GN; 99285-25

== ENCOUNTER 2022-01-18 12:12 | Emergency (ER) | payer MEDICARE, OTHER ==
[~2022-01-18] VITALS: Ht 154.9 cm; Wt 53.8 kg
[~2022-01-18 12:12] MED LIST changes: +ONDA-84 PO
[2022-01-18] MEDS ORDERED: IV NORMAL SALINE 1000ML BAG 1,000 ML IV SCH (12:45)
[2022-01-18] MEDS ORDERED: ONDANSETRON PF 4 MG/2 ML VIAL. IVP ONE (12:45)
--- NOTE | 2022-01-18 13:13 | RAD ---
EXAMINATION: Chest radiograph. VIEWS: 1 COMPARISON: 12/25/2021 INDICATION:71 years, Female, cough. FINDINGS: Normal cardiomediastinal silhouette. No focal consolidation. No pleural effusion or pneumothorax. No acute osseous process. IMPRESSION: No acute cardiopulmonary process. Electronically signed by: Nik Matthew MD (01/18/2022 1:11 PM) [facility]
--- NOTE | 2022-01-18 13:28 | PHYS DOC ---
Past Medical History Past Medical History: High Cholesterol Additional Past Medical Histor: OSTEOARTHRITIS Past Surgical History: Cervical Fusion, Other Additional Past Surgical Histo: R knee, TENDON REPAIR RIGHT HIP, DISKECTOMY Smoking Status: Never Smoker Alcohol Use: None Drug Use: None General Adult EDM: Chief Complaint: WEAKNESS/GENERALIZED HPI: HPI: Patient is a 71 year old female who presents with intermittent cough, chills, nausea, body aches, generalized fatigue for the last 3 to 4 days. States she has not taken her medication because she is so nauseated. She denies abdominal pain, chest pain, shortness of breath, syncope, dizziness, headache, fall, back pain, urinary symptoms, numbness or tingling, focal weakness, vomiting, diarrhea, constipation. Patient has a history of a tendon repair, high cholesterol, osteoarthritis, cervical fusion and discectomy which was done here approximately a month ago. Review of Systems: Review of Systems: Constitutional: Denies fever or +chills. [] Eyes: Denies change in visual acuity. [] HENT: Denies nasal congestion or sore throat. [] Respiratory: + Intermittent cough or denies shortness of breath. [] Cardiovascular: Denies chest pain or edema. [] GI: Denies abdominal pain, +nausea, denies vomiting, bloody stools or diarrhea. [] : Denies dysuria. [] Musculoskeletal: Denies back pain or joint pain. + Generalized aches. + Generalized fatigue [] Integument: Denies rash. [] Neurologic: Denies headache, focal weakness or sensory changes. [] Endocrine: Denies polyuria or polydipsia. [] Lymphatic: Denies swollen glands. [] Psychiatric: Denies depression or anxiety. [] Heart Score: C/O Chest Pain: No HEART Score for Chest Pain: HEART Score for Chest Pain Response (Comments) Value History Slighlty/Non-Suspicious 0 ECG Normal 0 Age > 65 2 Risk Factors 1 or 2 Risk Factors 1 Troponin < Normal Limit 0 Total 3 Risk Factors: Risk Factors: DM, Current or recent (<one month) smoker, HTN, HLP, family history of CAD, obesity. Risk Scores: Score 0 - 3: 2.5% MACE over next 6 weeks - Discharge Home Score 4 - 6: 20.3% MACE over next 6 weeks - Admit for Clinical Observation Score 7 - 10: 72.7% MACE over next 6 weeks - Early Invasive Strategies Current Medications: Current Medications Medications (Trade) Dose Ordered Sig/Jeanmarie Start Time Stop Time Status Last Admin Dose Admin Ondansetron HCl (Zofran) 4 mg 1X ONCE 01/18/22 12:45 01/18/22 12:46 DC Sodium Chloride 1,000 ml @ 1,000 mls/hr Q1H 01/18/22 12:45 01/18/22 13:44 Allergies: Allergies: Allergies Coded Allergies Type Severity Reaction Last Updated Verified No Known Drug Allergies 12/19/21 No Physical Exam: PE: Constitutional: Well developed, well nourished, no acute distress, non-toxic appearance. [] HENT: Normocephalic, atraumatic, bilateral external ears normal, oropharynx moist, no oral exudates, nose normal. [] Eyes: PERRLA, EOMI, conjunctiva normal, no discharge. [] Neck: Normal range of motion, no tenderness, supple, no stridor. [] Cardiovascular:Heart rate regular rhythm, no murmur [] Lungs & Thorax: Bilateral breath sounds clear to auscultation [] Abdomen: Bowel sounds normal, soft, no tenderness, no masses, no pulsatile masses. [] Skin: Warm, dry, no erythema, no rash. [] Back: No tenderness, no CVA tenderness. [] Extremities: No tenderness, no cyanosis, no clubbing, ROM intact, no edema. [] Neurologic: Alert and oriented X 3, normal motor function, normal sensory function, no focal deficits noted. [] Psychologic: Affect normal, judgement normal, mood normal. [] Normal physical exam Current Patient Data: Vital Signs: Vital Signs Date Time Temp Pulse Resp B/P (MAP) Pulse Ox O2 Delivery O2 Flow Rate FiO2 01/18/22 12:15 97.8 75 18 138/85 (102) 97 Room Air 97.8 EKG: EK and read by Dr. Ambriz as a sinus rhythm and no STEMI Radiology/Procedures: Radiology/Procedures: [] Impression: [facility] [address] [place] [address] IMAGING REPORT Signed PATIENT: ROM CRAIG ACCOUNT: [id number] : 1950 LOCATION: ER AGE: 71 SEX: F EXAM STATUS: PRE ER ORD. PHYSICIAN: DEVON FARNSWORTH APRN REASON: cough, chills PROCEDURE: PORTABLE CHEST 1V EXAMINATION: Chest radiograph. VIEWS: 1 COMPARISON: 12/25/2021 INDICATION:71 years, Female, cough. FINDINGS: Normal cardiomediastinal silhouette. No focal consolidation. No pleural effusion or pneumothorax. No acute osseous process. IMPRESSION: No acute cardiopulmonary process. Electronically signed by: Stephen Matthew MD (01/18/2022 1:11 PM) [facility] DICTATED and SIGNED BY: STEPHEN MATTHEW MD DATE: 01/18/221309 Course & Med Decision Making: Course & Med Decision Making Pertinent Labs and Imaging studies reviewed. (See chart for details) COVID-19 CRITERIA: The patient was evaluated during the global COVID-19 pandemic, and that diagnosis was suspected/considered upon their initial presentation. Their evaluation, treatment and testing was consistent with current guidelines for patients who present with complaints or symptoms that may be related to COVID-19. See HPI. Alert and oriented x4. Ambulatory steady gait. Skin pink warm and dry. Abdomen soft and nontender. No CVA tenderness. 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 Afebrile. She states she has taken her temperature at home and she does not have fever she just gets chills. No extremity swelling. Blood work unremarkable. Chest x-ray shows no acute findings. Vital signs remained stable. Tolerating p.o. Patient does have a urinary tract infection. We will give her Rocephin x1 IV here. She will be sent home on antibiotics. [] Gertrude Disclaimer: Gertrude Disclaimer: This electronic medical record was generated, in whole or in part, using a voice recognition dictation system. Departure Departure Impression: Primary Impression: UTI (urinary tract infection) Qualified Codes: N30.00 - Acute cystitis without hematuria Disposition: HOME / SELF CARE / HOMELESS Condition: STABLE Referrals: TEQUILA PATTERSON (PCP) Patient Instructions: Urinary Tract Infection Additional Instructions: Follow-up with your primary care provider. Drink plenty of fluids to stay hydrated. Take medication as prescribed and with food. If your symptoms worsen he can always return emergency room. Scripts Cefdinir (CEFDINIR) 300 Mg Capsule 1 CAP PO BID, #14 CAP Prov: DEVON FARNSWORTH APRN 01/18/22 DEVON FARNSWORTH APRN Jan 18, 2022 13:28
[2022-01-18 13:30] LABS: BASO % 1 % (0-3); EOS # 0.1 x10^3/uL (0.0-0.7); EOS % 1 % (0-3); HEMATOCRIT 34.9 % (36.0-47.0); HEMOGLOBIN 11.8 g/dL (12.0-15.5); LYMPH % 16 % (24-48); MEAN CORPUSCULAR HEMOGLOBIN 30 pg (25-35); MEAN CORPUSCULAR HGB CONC 34 g/dL (31-37); MEAN CORPUSCULAR VOLUME 89 fL (79-100); MONO # 0.8 x10^3/uL (0.0-1.1); MONO % 12 % (0-9); NEUT # 4.6 x10^3/uL (1.8-7.7); NEUT % 70 % (31-73); PLATELET COUNT 286 x10^3/uL (140-400); RED BLOOD COUNT 3.93 x10^6/uL (3.50-5.40); RED CELL DISTRIBUTION WIDTH 13.2 % (11.5-14.5); WHITE BLOOD COUNT 6.5 x10^3/uL (4.0-11.0)
[2022-01-18 13:38] LABS: CALCIUM 9.5 mg/dL (8.5-10.1); CREATININE 0.8 mg/dL (0.6-1.0); GFR 70.5; POTASSIUM 3.5 mmol/L (3.5-5.1)
[2022-01-18 13:44] LABS: ALBUMIN 3.7 g/dL (3.4-5.0); TOTAL BILIRUBIN 0.9 mg/dL (0.2-1.0); TOTAL PROTEIN 7.4 g/dL (6.4-8.2)
[2022-01-18 14:25] LABS: BACTERIA,URINE FEW /HPF (0-FEW); RBC,URINE 0 /HPF (0-2)
[2022-01-18 14:25] LABS: INFLUENZA A PATIENT NEGATIVE (NEGATIVE); INFLUENZA B PATIENT NEGATIVE (NEGATIVE)
[2022-01-18] MEDS ORDERED: CEFD300C PO (14:44)
[2022-01-18] MEDS ORDERED: cefTRIAXone IV Push 1 GM VIAL. IVP ONE (14:45)
[2022-01-18 14:55] VITALS: BP 124/73
--- NOTE | 2022-01-18 19:00 | EKG ---
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
== END 2022-01-18 14:58 | disposition home or self-care (01) ==
LOC: ER 12:12
DX: N30.00 Acute cystitis without hematuria (principal); E78.00 Pure hypercholesterolemia, unspecified; Z20.822 Contact with and (suspected) exposure to COVID-19
CPT/HCPCS: 36415; 71045; 80053; 81001; 83690; 84484; 85025; 87086; 87428; 93005; 96361; 96374; 96375; 99285; J0696; J2405; J7030

== ENCOUNTER 2022-02-27 10:59 | Day surgery (SDC) | payer MEDICARE, OTHER ==
[~2022-02-27] VITALS: Ht 154.9 cm; Wt 54.0 kg
[~2022-02-27 10:59] MED LIST changes: +CEFD300C PO; +ESCITALOPRAM OX10 MG PO; +HYDROmorphone 2 MG/ML INJ. IVP PRN; +IV RINGERS,LACTATED 1000ML 1,000 ML IV SCH; +MORPHINE SULFATE 2 MG/ML INJ. IVP PRN; +PROCHLORPERAZINE 10 MG/2 ML VIAL. IVP PRN; +ceFAZolin SODIUM IV Push 1 GM VIAL. IVP PRN; +fentaNYL PF VIAL 100 MCG/2 ML VIAL IVP PRN
[2022-02-27 11:26] VITALS: BP 132/75
[2022-02-27] MEDS ORDERED: SCOPOLAMINE 1.5MG PATCH. TD ONE (11:30)
--- NOTE | 2022-02-27 11:34 | SSS ---
DATE OF SERVICE: 02/27/2022 ADMIT DATE: 02/27/2022 SHORT STAY SUMMARY CHIEF COMPLAINT: Hammertoe request for preoperative evaluation. HISTORY OF PRESENT ILLNESS: The patient is a pleasant 71-year-old female who has a hammertoe. She is going to surgery today at 1:00. We have been requested for preoperative evaluation. PAST MEDICAL HISTORY: Hypertension, hyperlipidemia and hammertoe. ALLERGIES: SHE IS ALLERGIC TO ANESTHESIA. FAMILY HISTORY: Diabetes. SOCIAL HISTORY: She does not drink, smoke or take drugs. MEDICATIONS: Reviewed, please refer to the MRAD. REVIEW OF SYSTEMS: GENERAL: No history of weight change, weakness or fevers. SKIN: No bruising, hair changes or rashes. EYES: No blurred, double or loss of vision. NOSE AND THROAT: No history of nosebleeds, hoarseness or sore throat. HEART: No history of palpitations, chest pain or shortness of breath on exertion. LUNGS: Denies cough, hemoptysis, wheezing or shortness of breath. GASTROINTESTINAL: Denies changes in appetite, nausea, vomiting, diarrhea or constipation. GENITOURINARY: No history of frequency, urgency, hesitancy or nocturia. NEUROLOGIC: Denies history of numbness, tingling, tremor or weakness. PSYCHIATRIC: No history of panic, anxiety or depression. ENDOCRINE: No history of heat or cold intolerance, polyuria or polydipsia. EXTREMITIES: Denies muscle weakness, joint pain, pain on walking or stiffness. PHYSICAL EXAMINATION: VITALS: Within normal limits and are stable. GENERAL: No apparent distress. Alert and oriented. HEENT: Normocephalic atraumatic, external auditory canals are patent. EYES: Extraocular muscles are intact, pupils are equally round and reactive to light and accommodation. MUSCULOSKELETAL: Well developed, well nourished, good range of motion. ENDOCRINE: No thyromegaly was palpated. LYMPHATICS: No cervical chain or axillary nodes were noted. HEMATOPOIETIC: No bruising. NECK: Supple, no JVD, no thyromegaly was noted. LUNGS: Clear to auscultation in all lung ag without rhonchi or wheezing. HEART: RRR, S1, S2 present. Peripheral pulses intact, no obvious murmurs were noted. ABDOMEN: Soft, nontender. Positive bowel sounds no organomegaly, normal bowel sounds. EXTREMITIES: She has a hammertoe on the left and she also has a skin care on her left arm. NEUROLOGIC: Normal speech, normal tone. A and O x 3, moves all extremities, no obvious focal deficits. PSYCHIATRIC: Normal affect, normal mood. Stable. SKIN: No ulcerations or rashes, good skin turgor, no jaundice. VASCULAR: Good capillary refill, neurovascular bundle appears to be intact. ASSESSMENT AND PLAN: Hammertoe. The patient seems clinically stable for surgery today. I suspect she is at low risk for intraoperative or postoperative complications. Postoperatively, she will need wound care, p.r.n. pain meds and we can resume her home meds and have her followup with her primary care doctor in a week. [facility] [place]: OCTAVIA/alanna TID: [id number]
[2022-02-27 11:49] LABS: BASO % 1 % (0-3); EOS # 0.1 x10^3/uL (0.0-0.7); EOS % 1 % (0-3); HEMATOCRIT 36.6 % (36.0-47.0); HEMOGLOBIN 12.3 g/dL (12.0-15.5); LYMPH # 0.9 x10^3/uL (1.0-4.8); LYMPH % 15 % (24-48); MEAN CORPUSCULAR HEMOGLOBIN 30 pg (25-35); MEAN CORPUSCULAR HGB CONC 34 g/dL (31-37); MEAN CORPUSCULAR VOLUME 88 fL (79-100); MONO # 0.5 x10^3/uL (0.0-1.1); MONO % 8 % (0-9); NEUT # 4.5 x10^3/uL (1.8-7.7); NEUT % 75 % (31-73); PLATELET COUNT 302 x10^3/uL (140-400); RED BLOOD COUNT 4.17 x10^6/uL (3.50-5.40); RED CELL DISTRIBUTION WIDTH 14.5 % (11.5-14.5)
[2022-02-27 11:51] LABS: CALCIUM 9.6 mg/dL (8.5-10.1); CREATININE 0.7 mg/dL (0.6-1.0); GFR 82.3
[2022-02-27] MEDS ORDERED: ACET1TAB56 PO (11:52)
[2022-02-27 11:56] LABS: PROTHROMBIN TIME PATIENT 13.3 SEC (11.7-14.0)
[2022-02-27 11:57] LABS: ALBUMIN 3.8 g/dL (3.4-5.0); TOTAL BILIRUBIN 0.7 mg/dL (0.2-1.0); TOTAL PROTEIN 7.5 g/dL (6.4-8.2)
[2022-02-27] MEDS ORDERED: ONDANSETRON PF 4 MG/2 ML VIAL. ONE (12:24)
[2022-02-27] MEDS ORDERED: PROPOFOL 10 MG/ML (20ML) VIAL. IV ONE (12:24)
[2022-02-27] MEDS ORDERED: LIDOCAINE 2% PF 5 ML VIAL. ONE (12:24)
[2022-02-27] MEDS ORDERED: DEXAMETHASONE SOD PHOS 4 MG/ML VIAL ONE ×2 (12:24→12:45)
[2022-02-27] MEDS ORDERED: SEVOFLURANE 61 TO 120 MINUTES. IH ONE (12:24)
[2022-02-27] MEDS ORDERED: fentaNYL PF VIAL 100 MCG/2 ML VIAL ONE (12:24)
[2022-02-27] MEDS ORDERED: POVIDONE-IODINE 10% TOPICAL OINTMENT 28GM TUBE. TP ONE ×4 (12:45→14:45)
[2022-02-27] MEDS ORDERED: LIDOCAINE 1% PF 30 ML VIAL. ONE (12:45)
[2022-02-27] MEDS ORDERED: BUPIVACAINE MPF 0.5% 30 ML VIAL. ONE (12:46)
[2022-02-27] MEDS ORDERED: ePHEDrine PF IN SALINE 50 MG/10 ML SYRINGE. IV ONE (13:22)
[2022-02-27] MEDS ORDERED: PHENYLEPHRINE in 0.9% NACL PF 1 MG/10 ML SYRINGE. IV ONE (13:22)
--- NOTE | 2022-02-27 14:14 | DISCH ---
DISCHARGE INSTRUCTIONS Condition on Discharge Condition on Discharge: Stable Activity After Discharge Activity Instructions for Disc: Other, see below (Minimal weight bearing to the left foot in a surgical shoe till followup in clinic) Bathing Instructions: Shower-keep dressing dry Lifting Instructions after Dis: No heavy lifting, No pulling or pushing, Do not lift >10 pounds Driving Instructions after Dis: No driving for 2 weeks Weight Bearing Status after Di: Other, see below (Minimal weight bearing to the left foot in a surgical shoe till followup in clinic) Diet after Discharge Diet after Discharge: Regular Additional Diet Restrictions: resume home diet, soft diet Diet Texture: Regular Swallowing Supervision: None needed Wound Incision Care Wound/Incision Care: Keep wound/cast CDI, Keep wound elevated, Do not change dressing Contacting the after DC Call your doctor for: Concerns you may have Follow-Up Follow up with: Dr. Rapp on 03/03/2022 Treatment/Equipment after DC Adaptive Equipment Issued: KIANA Do [facility] February 27, 2022 14:14
--- NOTE | 2022-02-27 14:20 | PDOC4 ---
OPERATIVE NOTE: Podiatry post op note Date: 02/27/2022 Surgeon: Dr. Michelle Pre-operative Diagnosis: Left 4th digit hammer toe with soft tissue mass left 4th toe Post-operative Diagnosis: Same as above Procedure Performed: Hammer toe correction with soft tissue mass excision, left foot 4th digit Anesthesia: By Anesthesia service and performed local anesthesia (7ml of 1:1 mixture of 1% lidocaine plain and 0.5% marcaine plain) Hemostasis: Tourniquet to the left ankle set at 250 mmHg Blood Loss: Minimal Pathology: Bone and soft tissue mass left foot. Patient tolerated the procedure and anesthesia well and was transported to the PACU with vital signs stable and CFT < 3secs to the left foot. KIANA MICHELLE DPM February 27, 2022 14:20
[2022-02-27 14:31] VITALS: BP 134/71
--- NOTE | 2022-02-27 15:50 | RAD ---
EXAM: Left foot, 3 views. HISTORY: Pain. COMPARISON: None. FINDINGS: 3 views of the left foot are obtained. There is first metatarsal phalangeal joint space crystal rowing and spurring. There is sclerosis and subchondral cyst formation and cortical collapse involvin g the third metatarsal head secondary to osteonecrosis. There has been amputation of the distal aspec t of the fourth proximal phalanx. There is external casting material. IMPRESSION: 1. Amputation of the distal aspect of the fourth proximal phalanx. 2. Third metatarsal head osteonecrosis 3. Moderate first metatarsal phalangeal joint osteoarthritis. Electronically signed by: Christiane Kirkpatrick MD (02/27/2022 3:47 PM) [id number]
--- NOTE | 2022-02-27 21:47 | OP ---
DATE OF SURGERY: 02/27/2022 PREOPERATIVE DIAGNOSIS: Left fourth digit hammertoe with soft tissue mass, left fourth toe. POSTOPERATIVE DIAGNOSIS: Left fourth digit hammertoe with soft tissue mass, left fourth toe. PROCEDURE PERFORMED: Hammertoe correction of the left fourth digit with soft tissue mass excision of the left fourth digit. ESTIMATED BLOOD LOSS: Minimal. COMPLICATIONS: None. ANESTHESIA: Provided by Anesthesia service and local block performed at the fourth ray using 7 mL of 1:1 mixture of 1% lidocaine plain and 0.5% Marcaine plain. HEMOSTASIS: Left ankle tourniquet set at 250 mmHg. PATHOLOGY: Bone and soft tissue mass, left foot, sent to pathology lab. INDICATIONS: The patient was seen in clinic for a chronic lesion of the left fourth digit. The patient also had MRI done of the fourth digit, which did not show anything significant. The patient had chronic pain secondary to a hyperkeratotic lesion and hammertoe of the left fourth digit. After vascular evaluation, which showed adequate blood flow and discussion was made with the patient to excise the lesion as well as remove the soft tissue mass and fix the hammertoe, left fourth digit. The procedure was discussed in detail with the patient including the postoperative course, risks, and complications. The patient understands the complications of numbness, tingling, burning, bleeding and other complications, which she signed preoperatively. The patient understands the procedure and would like to go ahead with the same. On the day of surgery, the preop H and P was performed by Dr. Triplett, the hospitalist. Consent was signed and placed in the chart. DESCRIPTION OF PROCEDURE: The patient was brought to the operating room via a cart and placed on the operating room table in a supine position. Anesthesia performed by the anesthesia service and a local anesthetic block was given using 7 mL of 1:1 mixture of 0.5% Marcaine plain and 1% lidocaine plain at the 4th ray, left foot. Next, a tourniquet was applied to the left ankle. The foot was then prepped and draped in the usual aseptic technique and the foot was then exsanguinated using an Esmarch bandage. The tourniquet was inflated to 250 mmHg. Attention was then drawn to the fourth digit of the left foot where a linear incision was performed at the dorsal fourth digit around the PIPJ measuring about 1.5 cm. The incision was deepened to the PIPJ joint capsule with care being taken to protect the neurovascular bundle. A horizontal capsulotomy was performed at the PIPJ of the fourth digit with reflection of the joint capsule and incision of the extensor tendon, which was reflected back off the fourth digit proximal head. Next, using a sagittal saw, the proximal head was resected about 5 mm length. The toe was then positioned and looked in appropriate position. The base of the fourth digit middle phalanx was examined and the bone was cleaned out at the base around the lateral aspect. We were unable to access the soft tissue mass area from the dorsal incisions, so a lateral incision measuring about 1 cm was performed around the soft tissue mass and the hyperkeratotic lesion. The hyperkeratotic lesion was resected out and the soft tissue mass was identified. Neurovascular bundle was also identified and reflected off the area and protected. The soft tissue mass was whitish in color, which was removed and sent to pathology including the bone and proximal head of the phalanx and the hyperkeratotic lesion; all sent to pathology lab for further analysis. Next, the incision sites were copiously irrigated. Using a 3-0 Vicryl, the extensor tendon was reapproximated and sutured in a horizontal mattress fashion. The skin was then reapproximated at both incision sites with 4-0 nylon in simple suture technique. Next, the tourniquet was released and good perfusion was noted at the surgical site with appropriate CFT noted. The decision was made not to use a K-wire as the position of the toe was adequate and the soft tissue mass had been dissected out. Next, the toe was cleaned and Betadine ointment, Adaptic, 4 x 4 gauze and Андрей roll was applied to the incision site. Good perfusion was noted throughout the whole bandage application at the fourth digit and the rest of the foot. Next, the toe was bandaged with Coban, and Kiel wrap over the Андрей wrap and the procedure was finished. The patient tolerated the procedure and anesthesia well. The patient was taken to PACU with vital signs stable and in a good condition with CFTs rechecked again in the PACU to be adequately good, less than 3 seconds. The patient is to remain minimal weightbearing in a surgical shoe and to follow up in clinic. The patient is to follow up in 4 days at the clinic. The patient was given Tylenol No. [address] Triplett for postoperative pain. The patient will follow up in clinic and call earlier if any issues. NEAL/RUDDY/GABBI DR: NEAL/alanna TID: [id number] MTDD
--- NOTE | 2022-03-04 07:46 | PATHOLOGY ---
[facility] Accession Number: [id number] . 01 Material submitted: . foot - 4TH DIGIT LEFT FOOT BONE AND SOFT TISSUE . 01 Clinical history: . HAMMER TOE CORRECTION L 4TH DIGIT SOFT TISSUE MASS EXCISION . 02 Diagnosis: Skin and soft tissue, left fourth digit soft tissue mass excision: - Epidermal hyperplasia with hypergranulosis and marked hyperkeratosis, and fibrosis of dermis and soft tissue. ([facility]PM:[facility]; 03/03/2022) QTP 03/03/2022 1746 Local . 02 Electronically signed: . Hermilo Grant MD, Pathologist NPI- [id number] . 01 Gross description: . The specimen is received in formalin, labeled "Estefania Malik, 4th digit L foot bone and soft tissue" and consists of an unoriented, elliptical skin biopsy (1.2 x 0.5 cm, excised to depth of 0.4 cm) with bruce smooth skin that displays a tellez roughened lesion (0.4 x 0.3 cm) that comes to within less than 0.1 cm from the nearest surgical margin (inked green). This portion of the specimen is serially sectioned. Also received in the same container is a bruce-seo rubbery irregular tissue (0.6 x 0.4 x 0.2 cm) which is entirely inked black. This portion of the specimen is bisected. The specimen is submitted entirely in 2 cassettes with the tips from the first tissue submitted in A2.([facility]; 02/28/2022) DKA/DKA 02/28/2022 1106 Local . 02 Pathologist provided ICD-10: L85.8 . 02 CPT . 551183 Specimen Comment: A courtesy copy of this report has been sent to [phone] Specimen Comment: Report sent to Performed at: 01 [facility] [address], [place], [place] [id number] MD Alan Bsoch MD Phone: [phone] Performed at: 02 [facility] [address] [place], [place] [id number] MD Hermilo Grant MD Phone: [phone]
== END 2022-02-27 15:10 | disposition home or self-care (01) ==
LOC: SURG 10:59
PROVIDERS: ATTEND Podiatrist
DX: M20.42 Other hammer toe(s) (acquired), left foot (principal); I10 Essential (primary) hypertension; E78.00 Pure hypercholesterolemia, unspecified; K21.9 Gastro-esophageal reflux disease without esophagitis; M19.90 Unspecified osteoarthritis, unspecified site; Z79.899 Other long term (current) drug therapy; Z98.890 Other specified postprocedural states
CPT/HCPCS: 28285; 36415; 73630; 80053; 85025; 85610; 85730; A4209; A4215; A4930; A6402; A6449; J0690; J1100; J2370; J2405; J2704; J3010; J3490; A4657; A6443; A6454

== ENCOUNTER 2022-03-16 12:18 | Inpatient (IN) | payer MEDICARE, OTHER ==
[~2022-03-16] VITALS: Ht 154.9 cm; Wt 54.2 kg
[~2022-03-16 12:18] MED LIST changes: +ACET1TAB56 PO; -HYDROmorphone 2 MG/ML INJ. IVP PRN; -IV RINGERS,LACTATED 1000ML 1,000 ML IV SCH; -MORPHINE SULFATE 2 MG/ML INJ. IVP PRN; -PROCHLORPERAZINE 10 MG/2 ML VIAL. IVP PRN; -ceFAZolin SODIUM IV Push 1 GM VIAL. IVP PRN; -fentaNYL PF VIAL 100 MCG/2 ML VIAL IVP PRN
--- NOTE | 2022-03-16 13:47 | PHYS DOC ---
Past Medical History Past Medical History: High Cholesterol Additional Past Medical Histor: OSTEOARTHRITIS Past Surgical History: Cervical Fusion, Other Additional Past Surgical Histo: R knee, TENDON REPAIR RIGHT HIP, DISKECTOMY Smoking Status: Never Smoker Alcohol Use: None Drug Use: None General Adult EDM: Chief Complaint: MULTIPLE COMPLAINTS HPI: HPI: History obtained from patient. Patient is a 71-year-old female with past medical history significant for recent left foot surgery, hyperlipidemia, hypertension who presents with chief complaint of lightheadedness and shortness of breath. She notes 3 days ago she began having subjective fevers. Note she has had body aches. Notes a dry cough. Notes a mild sore throat. States that yesterday she became somewhat lightheaded particular with ambulation actually fell to the ground. States she struck a wall but did not hit her head. Slid to the ground on her bottom. Has been walking with a cane recently due to her foot surgery. Notes that she feels as though she cannot take a full breath. Denies history of blood clot in the legs or lungs. Denies swelling to the lower extremities. Denies orthopnea. Denies any history of underlying lung or cardiac disorders. Is vaccinated for COVID and influenza. Denies sick contac ts. Denies any vertiginous symptoms. Denies headache. Review of Systems: Review of Systems: Constitutional: Positive for fevers and fatigue Eyes: Denies change in visual acuity. [] HENT: Denies nasal congestion or sore throat. [] Respiratory: D positive for cough and shortness of breath Cardiovascular: Denies chest pain or edema. [] GI: Denies abdominal pain, nausea, vomiting, bloody stools or diarrhea. [] : Denies dysuria. [] Musculoskeletal: Denies back pain or joint pain. [] Integument: Denies rash. [] Neurologic: Denies headache, focal weakness or sensory changes. [] Positive for lightheadedness enies polyuria or polydipsia. [] Lymphatic: Denies swollen glands. [] Psychiatric: Denies depression or anxiety. [] Heart Score: C/O Chest Pain: No Risk Factors: Risk Factors: DM, Current or recent (<one month) smoker, HTN, HLP, family history of CAD, obesity. Risk Scores: Score 0 - 3: 2.5% MACE over next 6 weeks - Discharge Home Score 4 - 6: 20.3% MACE over next 6 weeks - Admit for Clinical Observation Score 7 - 10: 72.7% MACE over next 6 weeks - Early Invasive Strategies Allergies: Allergies: Allergies Coded Allergies Type Severity Reaction Last Updated Verified No Known Drug Allergies 02/27/22 No Physical Exam: PE: Constitutional: Well developed, well nourished, no acute distress, non-toxic appearance. [] HENT: Normocephalic, atraumatic, bilateral external ears normal, oropharynx moist, no oral exudates, nose normal. [] Eyes: PERRLA, EOMI, conjunctiva normal, no discharge. [] Neck: Normal range of motion, no tenderness, supple, no stridor. [] Cardiovascular:Heart rate regular rhythm, no murmur [] Lungs & Thorax: Tachypneic. 95% on room air. Clear lung sounds bilaterally. No accessory muscle use noted. Abdomen: Bowel sounds normal, soft, no tenderness, no masses, no pulsatile masses. [] Skin: Warm, dry, no erythema, no rash. [] Back: No tenderness, no CVA tenderness. [] Extremities: No tenderness, no cyanosis, no clubbing, ROM intact, no edema. [] Neurologic: Alert and oriented X 3, normal motor function, normal sensory function, no focal deficits noted. [] Psychologic: Affect normal, judgement normal, mood normal. [] Current Patient Data: Labs: Laboratory Tests Test 03/16/22 13:54 03/16/22 15:12 Influenza Type A Antigen Negative Influenza Type B Antigen Negative SARS-CoV-2 Antigen (Rapid) Positive White Blood Count 3.8 x10^3/uL Red Blood Count 3.86 x10^6/uL Hemoglobin 11.4 g/dL Hematocrit 33.5 % Mean Corpuscular Volume 87 fL Mean Corpuscular Hemoglobin 30 pg Mean Corpuscular Hemoglobin Concent 34 g/dL Red Cell Distribution Width 15.1 % Platelet Count 215 x10^3/uL Neutrophils (%) (Auto) 67 % Lymphocytes (%) (Auto) 16 % Monocytes (%) (Auto) 17 % Eosinophils (%) (Auto) 0 % Basophils (%) (Auto) 1 % Neutrophils # (Auto) 2.6 x10^3/uL Lymphocytes # (Auto) 0.6 x10^3/uL Monocytes # (Auto) 0.6 x10^3/uL Eosinophils # (Auto) 0.0 x10^3/uL Basophils # (Auto) 0.0 x10^3/uL Sodium Level 139 mmol/L Potassium Level 3.8 mmol/L Chloride Level 102 mmol/L Carbon Dioxide Level 20 mmol/L Anion Gap 17 Blood Urea Nitrogen 20 mg/dL Creatinine 0.8 mg/dL Estimated GFR (Cockcroft-Gault) 70.5 BUN/Creatinine Ratio 25 Glucose Level 83 mg/dL Lactic Acid Level 1.4 mmol/L Calcium Level 8.5 mg/dL Total Bilirubin 0.6 mg/dL Aspartate Amino Transf (AST/SGOT) 24 U/L Alanine Aminotransferase (ALT/SGPT) 22 U/L Alkaline Phosphatase 89 U/L Troponin I High Sensitivity 7 ng/L QT-Mvm-T-Type Natriuretic Peptide 188 pg/mL Total Protein 6.4 g/dL Albumin 3.1 g/dL Albumin/Globulin Ratio 0.9 Current Medications Medications (Trade) Dose Ordered Sig/Jeanmarie Route PRN Reason Start Time Stop Time Status Last Admin Dose Admin Iohexol (Omnipaque 350 Mg/ml) 100 ml 1X ONCE IV 03/16/22 14:15 03/16/22 14:16 DC Info (CONTRAST GIVEN -- Rx MONITORING) 1 each PRN DAILY PRN MC SEE COMMENTS 03/16/22 14:30 03/18/22 14:29 Acetaminophen (Tylenol) 1,000 mg 1X ONCE PO 03/16/22 14:30 03/16/22 14:31 DC 03/16/22 14:30 Sodium Chloride 1,000 ml @ 1,000 mls/hr 1X ONCE IV 03/16/22 14:30 03/16/22 15:29 DC 03/16/22 14:40 Albuterol Sulfate (Ventolin Hfa) 4 puff 1X ONCE INH 03/16/22 15:00 03/16/22 15:01 DC 03/16/22 15:01 Vital Signs: Vital Signs Date Time Temp Pulse Resp B/P (MAP) Pulse Ox O2 Delivery O2 Flow Rate FiO2 03/16/22 13:10 100.3 83 36 143/67 (92) 99 Room Air 100.3 EKG: EKG: [] EKG consistent with sinus rhythm. Ventricular rate of 71 bpm. [place] normal. Artifact present but no obvious acute ischemia appreciated. Radiology/Procedures: Radiology/Procedures: [facility] [id number] [place] [address] IMAGING REPORT Signed PATIENT: ROM CRAIG ACCOUNT: [id number] : 1950 LOCATION: ER AGE: 71 SEX: F EXAM STATUS: REG ER ORD. PHYSICIAN: RENY MCMAHON DO REASON: fall PROCEDURE: HIP RIGHT 2V WITH PELVIS Right hip 2 views with one view pelvis. HISTORY: Pain, fall Single view was taken of the pelvis. There is degenerative change in lower lumbar spine with mild scoliosis. There is no pelvic fracture evident. There is osteoarthritis in the left hip with prominent spurring on the femoral head. Right hip AP and lateral views were taken of the right hip. There is slight spurring on the femoral head from mild arthritis. There is no fracture or other acute osseous abnormality. IMPRESSION: 1. Moderate osteoarthritis left hip. 2. Mild arthritis right hip. 3. No acute hip fracture. 4. No acute pelvic fracture. Electronically signed by: Abdelrahman Ann MD (03/16/2022 3:12 PM) [id number] DICTATED and SIGNED BY: ABDELRAHMAN ANN MD DATE: 03/16/[address] [address] IMAGING REPORT Signed PATIENT: ROM CRAIG ACCOUNT: [id number] : 1950 LOCATION: ER AGE: 71 SEX: F EXAM STATUS: REG ER ORD. PHYSICIAN: RENY MCMAHON DO REASON: SOB PROCEDURE: PORTABLE CHEST 1V XR CHEST 1V 03/16/2022 3:19 PM INDICATION: Shortness of breath COMPARISON: 01/18/2022 TECHNIQUE: Portable frontal view of the chest is provided. FINDINGS: The cardiomediastinal silhouette is within normal limits. Lungs are clear. There are no significant pleural effusions. There is no pulmonary vascular congestion. No pneumothorax. Mild right glenohumeral osteoarthrosis. Anterior cervical discectomy and fusion hardware partially profiled within the lower cervical spine. IMPRESSION: There is no acute cardiopulmonary process. Electronically signed by: Nuria Hernandez MD (03/16/2022 3:36 PM) [id number] DICTATED and SIGNED BY: NURIA HERNANDEZ MD DATE: 03/16/22 1535 [] Course & Med Decision Making: Course & Med Decision Making Pertinent Labs and Imaging studies reviewed. (See chart for details) [] Patient is a very pleasant 71-year-old female presents with chief complaint of shortness breath, body aches, fatigue over the past 3 days with fevers. Initial vital signs notable for tachypnea. Lungs are clear to auscultation. Broad work-up obtained. Patient did test positive for COVID. She is vaccinated. Right hip plain film edging was obtained given she reports a fall yesterday. This was negative for traumatic abnormality. While in the emergency department patient did have waxing and waning hypoxia. Got as low as 88%. Placed on nasal cannula. Overall given her age and tenuous oxygen levels I do feel she would benefit from hospitalization. Decadron will be administered. Case discussed with hospitalist who agrees with plan. Gertrude Disclaimer: Gertrude Disclaimer: This electronic medical record was generated, in whole or in part, using a voice recognition dictation system. Departure Departure Impression: Primary Impression: COVID-19 Additional Impression: Respiratory failure Qualified Codes: J96.01 - Acute respiratory failure with hypoxia Disposition: ADMITTED INPATIENT Condition: GOOD Referrals: TEQUILA PATTERSON (PCP) RENY MCMAHON DO March 16, 2022 13:47
[2022-03-16] MEDS ORDERED: IOHEXOL 350 MG/ML 100 ML VIAL. IV ONE (14:15)
[2022-03-16 14:23] LABS: INFLUENZA A PATIENT NEGATIVE (NEGATIVE); INFLUENZA B PATIENT NEGATIVE (NEGATIVE)
[2022-03-16] MEDS ORDERED: ACETAMINOPHEN 500 MG TABLET PO ONE (14:30)
[2022-03-16] MEDS ORDERED: IV NORMAL SALINE 1000ML BAG 1,000 ML IV ONE (14:30)
[2022-03-16] MEDS ORDERED: CONTRAST GIVEN. MC PRN (14:30)
[2022-03-16] MEDS ORDERED: ALBUTEROL SULFATE 8GM INHALER. INH ONE (15:00)
--- NOTE | 2022-03-16 15:14 | RAD ---
Right hip 2 views with one view pelvis. HISTORY: Pain, fall Single view was taken of the pelvis. There is degenerative change in lower lumbar spine with mild sco liosis. There is no pelvic fracture evident. There is osteoarthritis in the left hip with prominent s purring on the femoral head. Right hip AP and lateral views were taken of the right hip. There is slight spurring on the femoral head from m ild arthritis. There is no fracture or other acute osseous abnormality. IMPRESSION: 1. Moderate osteoarthritis left hip. 2. Mild arthritis right hip. 3. No acute hip fracture. 4. No acute pelvic fracture. Electronically signed by: Abdelrahman Ann MD (03/16/2022 3:12 PM) [id number]
[2022-03-16 15:26] LABS: BASO % 1 % (0-3); EOS % 0 % (0-3); HEMATOCRIT 33.5 % (36.0-47.0); HEMOGLOBIN 11.4 g/dL (12.0-15.5); LYMPH # 0.6 x10^3/uL (1.0-4.8); LYMPH % 16 % (24-48); MEAN CORPUSCULAR HEMOGLOBIN 30 pg (25-35); MEAN CORPUSCULAR HGB CONC 34 g/dL (31-37); MEAN CORPUSCULAR VOLUME 87 fL (79-100); MONO # 0.6 x10^3/uL (0.0-1.1); MONO % 17 % (0-9); NEUT # 2.6 x10^3/uL (1.8-7.7); NEUT % 67 % (31-73); PLATELET COUNT 215 x10^3/uL (140-400); RED BLOOD COUNT 3.86 x10^6/uL (3.50-5.40); RED CELL DISTRIBUTION WIDTH 15.1 % (11.5-14.5); WHITE BLOOD COUNT 3.8 x10^3/uL (4.0-11.0)
[2022-03-16 15:36] LABS: CALCIUM 8.5 mg/dL (8.5-10.1); CREATININE 0.8 mg/dL (0.6-1.0); GFR 70.5; POTASSIUM 3.8 mmol/L (3.5-5.1)
--- NOTE | 2022-03-16 15:38 | RAD ---
XR CHEST 1V 03/16/2022 3:19 PM INDICATION: Shortness of breath COMPARISON: 01/18/2022 TECHNIQUE: Portable frontal view of the chest is provided. FINDINGS: The cardiomediastinal silhouette is within normal limits. Lungs are clear. There are no significant pleural effusions. There is no pulmonary vascular congestion. No pneumothora x. Mild right glenohumeral osteoarthrosis. Anterior cervical discectomy and fusion hardware partially pr ofiled within the lower cervical spine. IMPRESSION: There is no acute cardiopulmonary process. Electronically signed by: Maggie Evans MD (03/16/2022 3:36 PM) [id number]
[2022-03-16 15:42] LABS: ALBUMIN 3.1 g/dL (3.4-5.0); ALBUMIN/GLOBULIN RATIO 0.9 (1.0-1.7); TOTAL BILIRUBIN 0.6 mg/dL (0.2-1.0); TOTAL PROTEIN 6.4 g/dL (6.4-8.2)
[2022-03-16] MEDS ORDERED: DEXAMETHASONE 4 MG TABLET PO ONE (16:15)
--- NOTE | 2022-03-16 16:40 | PDOC1 ---
History and Physical Date of Service: DOS: DATE: 03/16/22 TIME: 16:34 Chief Complaint: Chief Complain: Lightheadedness and shortness of breath History of Present Illness: HPI: 71-year-old female with past medical history significant for recent left foot surgery, hyperlipidemia, hypertension who presents with chief complaint of lightheadedness and shortness of breath. She notes 3 days ago she began having subjective fevers. Note she has had body aches. Notes a dry cough. Notes a mild sore throat. States that yesterday she became somewhat lightheaded particular with ambulation actually fell to the ground. States she struck a wall but did not hit her head. Slid to the ground on her bottom. Has been walking with a cane recently due to her foot surgery. Notes that she feels as though she cannot take a full breath. Denies history of blood clot in the legs or lungs. Denies swelling to the lower extremities. Denies orthopnea. Denies any history of underlying lung or cardiac disorders. Is vaccinated for COVID and influenza. Denies sick contacts. Denies any vertiginous symptoms. Denies headache. Past Medical/Surgical History: PMH/PSH: Past Medical History: High Cholesterol, OSTEOARTHRITIS Past Surgical History: Cervical Fusion, R knee, TENDON REPAIR RIGHT HIP, DISKECTOMY Allergies: Allergies: Coded Allergies: No Known Drug Allergies (Unverified , 03/16/22) Family History: Family History: Reviewed with no relative findings in the chart Social History: Social History: Smoking Status: Never Smoker Alcohol Use: None Drug Use: None Current Medications: Current Medications Current Medications Iohexol (Omnipaque 350 Mg/ml) 100 ml 1X ONCE IV ; Start 03/16/22 at 14:15; Stop 03/16/22 at 14:16; Status DC Info (CONTRAST GIVEN -- Rx MONITORING) 1 each PRN DAILY PRN MC SEE COMMENTS; Start 03/16/22 at 14:30; Stop 03/18/22 at 14:29 Acetaminophen (Tylenol) 1,000 mg 1X ONCE PO Last administered on 03/16/22at 14:30; Start 03/16/22 at 14:30; Stop 03/16/22 at 14:31; Status DC Sodium Chloride 1,000 ml @ 1,000 mls/hr 1X ONCE IV Last administered on 03/16/22at 14:40; Start 03/16/22 at 14:30; Stop 03/16/22 at 15:29; Status DC Albuterol Sulfate (Ventolin Hfa) 4 puff 1X ONCE INH Last administered on 03/16/22at 15:01; Start 03/16/22 at 15:00; Stop 03/16/22 at 15:01; Status DC Dexamethasone (Decadron) 10 mg 1X ONCE PO ; Start 03/16/22 at 16:15; Stop 03/16/22 at 16:16; Status DC Active Scripts Active Acetaminophen-Cod #3 Tablet (Acetaminophen/Codeine Phosphate) 1 Each Tablet 1 Tab PO PRN Q4HRS PRN 10 Days Reported Escitalopram Oxalate 10 Mg Tablet 10 Mg PO DAILY Tramadol Hcl 50 Mg Tablet 50 Mg PO DAILY PRN Gabapentin 600 Mg Tablet 300 Mg PO HS Gabapentin 600 Mg Tablet 100 Mg PO [id number] Atorvastatin Calcium 20 Mg Tablet 40 Mg PO HS Losartan Potassium (Losartan Potassium) 25 Mg Tablet 50 Mg PO DAILY Amlodipine Besylate 2.5 Mg Tablet 5 Mg PO DAILY ROS: Review of Systems Review of System REVIEW OF SYSTEMS: GENERAL: Denies weakness SKIN: No bruising, hair changes or rashes. EYES: No blurred, double or loss of vision. NOSE AND THROAT: No history of nosebleeds, hoarseness or sore throat. HEART: No history of palpitations, chest pain or shortness of breath on exertion. LUNGS: Positive shortness of breath GASTROINTESTINAL: Denies changes in appetite, nausea, vomiting, diarrhea or constipation. GENITOURINARY: No history of frequency, urgency, hesitancy or nocturia. NEUROLOGIC: Denies history of numbness, tingling, or tremor. PSYCHIATRIC: No history of panic, anxiety or depression. ENDOCRINE: No history of heat or cold intolerance, polyuria or polydipsia. EXTREMITIES: Positive for hip pain Physical Exam: Vital Signs: Vital Signs Date Time Temp Pulse Resp B/P (MAP) Pulse Ox O2 Delivery O2 Flow Rate FiO2 03/16/22 15:58 99.8 99.8 03/16/22 15:55 28 98 Nasal Cannula 1.0 03/16/22 13:10 83 143/67 (92) Physcial Exam: General: Well developed, well nourished, no acute distress, well appearing HEENT: Pupils equally round and reactive to light, EOMI, no discharge, normal conjunctiva Neck: Supple, no nuchal rigidity, no JVD, trachea midline, no tenderness Cardiac: RRR, no murmurs, no gallops, no rubs Chest/Lungs: CTAB, no wheeze, no rhonchi, no crackles Abdomen: soft, non-distended, no guarding, no peritoneal signs, non-tender Back: No tenderness Extremities: no edema, pulses intact, non-tender,capillary refill <3 sec bilateral upper and lower extremities, Neuro: Alert and oriented x 4, no focal deficits, normal speech Labs: Labs: Laboratory Tests Test 03/16/22 13:54 03/16/22 15:12 Influenza Type A Antigen Negative (NEGATIVE) Influenza Type B Antigen Negative (NEGATIVE) SARS-CoV-2 Antigen (Rapid) Positive (NEGATIVE) White Blood Count 3.8 x10^3/uL (4.0-11.0) Red Blood Count 3.86 x10^6/uL (3.50-5.40) Hemoglobin 11.4 g/dL (12.0-15.5) Hematocrit 33.5 % (36.0-47.0) Mean Corpuscular Volume 87 fL (79-100) Mean Corpuscular Hemoglobin 30 pg (25-35) Mean Corpuscular Hemoglobin Concent 34 g/dL (31-37) Red Cell Distribution Width 15.1 % (11.5-14.5) Platelet Count 215 x10^3/uL (140-400) Neutrophils (%) (Auto) 67 % (31-73) Lymphocytes (%) (Auto) 16 % (24-48) Monocytes (%) (Auto) 17 % (0-9) Eosinophils (%) (Auto) 0 % (0-3) Basophils (%) (Auto) 1 % (0-3) Neutrophils # (Auto) 2.6 x10^3/uL (1.8-7.7) Lymphocytes # (Auto) 0.6 x10^3/uL (1.0-4.8) Monocytes # (Auto) 0.6 x10^3/uL (0.0-1.1) Eosinophils # (Auto) 0.0 x10^3/uL (0.0-0.7) Basophils # (Auto) 0.0 x10^3/uL (0.0-0.2) Sodium Level 139 mmol/L (136-145) Potassium Level 3.8 mmol/L (3.5-5.1) Chloride Level 102 mmol/L (98-107) Carbon Dioxide Level 20 mmol/L (21-32) Anion Gap 17 (6-14) Blood Urea Nitrogen 20 mg/dL (7-20) Creatinine 0.8 mg/dL (0.6-1.0) Estimated GFR (Cockcroft-Gault) 70.5 BUN/Creatinine Ratio 25 (6-20) Glucose Level 83 mg/dL (70-99) Lactic Acid Level 1.4 mmol/L (0.4-2.0) Calcium Level 8.5 mg/dL (8.5-10.1) Total Bilirubin 0.6 mg/dL (0.2-1.0) Aspartate Amino Transf (AST/SGOT) 24 U/L (15-37) Alanine Aminotransferase (ALT/SGPT) 22 U/L (14-59) Alkaline Phosphatase 89 U/L (46-116) Troponin I High Sensitivity 7 ng/L (4-50) VE-Knu-I-Type Natriuretic Peptide 188 pg/mL (0-124) Total Protein 6.4 g/dL (6.4-8.2) Albumin 3.1 g/dL (3.4-5.0) Albumin/Globulin Ratio 0.9 (1.0-1.7) Laboratory Tests Test 03/16/22 13:54 03/16/22 15:12 Influenza Type A Antigen Negative (NEGATIVE) Influenza Type B Antigen Negative (NEGATIVE) SARS-CoV-2 Antigen (Rapid) Positive (NEGATIVE) White Blood Count 3.8 x10^3/uL (4.0-11.0) Red Blood Count 3.86 x10^6/uL (3.50-5.40) Hemoglobin 11.4 g/dL (12.0-15.5) Hematocrit 33.5 % (36.0-47.0) Mean Corpuscular Volume 87 fL (79-100) Mean Corpuscular Hemoglobin 30 pg (25-35) Mean Corpuscular Hemoglobin Concent 34 g/dL (31-37) Red Cell Distribution Width 15.1 % (11.5-14.5) Platelet Count 215 x10^3/uL (140-400) Neutrophils (%) (Auto) 67 % (31-73) Lymphocytes (%) (Auto) 16 % (24-48) Monocytes (%) (Auto) 17 % (0-9) Eosinophils (%) (Auto) 0 % (0-3) Basophils (%) (Auto) 1 % (0-3) Neutrophils # (Auto) 2.6 x10^3/uL (1.8-7.7) Lymphocytes # (Auto) 0.6 x10^3/uL (1.0-4.8) Monocytes # (Auto) 0.6 x10^3/uL (0.0-1.1) Eosinophils # (Auto) 0.0 x10^3/uL (0.0-0.7) Basophils # (Auto) 0.0 x10^3/uL (0.0-0.2) Sodium Level 139 mmol/L (136-145) Potassium Level 3.8 mmol/L (3.5-5.1) Chloride Level 102 mmol/L (98-107) Carbon Dioxide Level 20 mmol/L (21-32) Anion Gap 17 (6-14) Blood Urea Nitrogen 20 mg/dL (7-20) Creatinine 0.8 mg/dL (0.6-1.0) Estimated GFR (Cockcroft-Gault) 70.5 BUN/Creatinine Ratio 25 (6-20) Glucose Level 83 mg/dL (70-99) Lactic Acid Level 1.4 mmol/L (0.4-2.0) Calcium Level 8.5 mg/dL (8.5-10.1) Total Bilirubin 0.6 mg/dL (0.2-1.0) Aspartate Amino Transf (AST/SGOT) 24 U/L (15-37) Alanine Aminotransferase (ALT/SGPT) 22 U/L (14-59) Alkaline Phosphatase 89 U/L (46-116) Troponin I High Sensitivity 7 ng/L (4-50) YR-Myn-M-Type Natriuretic Peptide 188 pg/mL (0-124) Total Protein 6.4 g/dL (6.4-8.2) Albumin 3.1 g/dL (3.4-5.0) Albumin/Globulin Ratio 0.9 (1.0-1.7) Images: Images PROCEDURE: HIP RIGHT 2V WITH PELVIS Right hip 2 views with one view pelvis. HISTORY: Pain, fall Single view was taken of the pelvis. There is degenerative change in lower lumbar spine with mild scoliosis. There is no pelvic fracture evident. There is osteoarthritis in the left hip with prominent spurring on the femoral head. Right hip AP and lateral views were taken of the right hip. There is slight spurring on the femoral head from mild arthritis. There is no fracture or other acute osseous abnormality. IMPRESSION: 1. Moderate osteoarthritis left hip. 2. Mild arthritis right hip. 3. No acute hip fracture. 4. No acute pelvic fracture. PROCEDURE: PORTABLE CHEST 1V XR CHEST 1V 03/16/2022 3:19 PM INDICATION: Shortness of breath COMPARISON: 01/18/2022 TECHNIQUE: Portable frontal view of the chest is provided. FINDINGS: The cardiomediastinal silhouette is within normal limits. Lungs are clear. There are no significant pleural effusions. There is no pulmonary vascular congestion. No pneumothorax. Mild right glenohumeral osteoarthrosis. Anterior cervical discectomy and fusion hardware partially profiled within the lower cervical spine. IMPRESSION: There is no acute cardiopulmonary process. Assessment/Plan Assessment/Plan Acute hypoxic respiratory failure COVID-19 pneumonia Normocytic anemia likely due to MAIA Lymphopenia History of dyslipidemia History of osteoarthritis Admit to medicine for further management Fall precautions Consider pulmonology consult Continue IV thiamine and vitamin C IV Solu-Medrol every 8 hours IV Remdesivir if patient requires O2 supplementation beyond there baseline Pending CRP, D-dimer labs Titrate O2 supplementation to maintain O2 saturation greater than 92% Empiric IV antibiotics if patient has clinical presentation for bacterial pneumonia Lovenox for DVT prophylaxis Protonix while on steroids GI prophylaxis ADA diet Full code Discussed with RN and SW Disposition inpatient management as above Surrogate decision maker is the Justifications for Admission Other Justification PETE BENITEZ MD March 16, 2022 16:40
[2022-03-16] MEDS ORDERED: MORPHINE SULFATE 2 MG/ML INJ. IVP PRN (16:45)
[2022-03-16] MEDS: IV NORMAL SALINE 1000ML BAG 1,000 ML IV SCH (16:45)
[2022-03-16] MEDS ORDERED: ACETAMINOPHEN 325 MG TABLET. PO PRN (16:45)
[2022-03-16] MEDS ORDERED: SENNOSIDES 8.6 MG TABLET PO PRN (16:45)
[2022-03-16] MEDS ORDERED: DEXTROSE 50% 25 GM / 50ML DISP.SYRIN. IV PRN (16:45)
[2022-03-16] MEDS ORDERED: ZOLPIDEM 5 MG TABLET. PO PRN (16:45)
[2022-03-16] MEDS ORDERED: PROCHLORPERAZINE 10 MG/2 ML VIAL. IV PRN (16:45)
[2022-03-16] MEDS ORDERED: LORazepam 0.5 MG TABLET PO PRN (16:45)
[2022-03-16] MEDS ORDERED: oxyCODONE/APAP 5/325 1 TAB TABLET PO PRN (16:45)
[2022-03-16] MEDS ORDERED: DOCUSATE SODIUM 100 MG CAPSULE. PO PRN (16:45)
[2022-03-16] MEDS ORDERED: diphenhydrAMINE 50 MG/ML VIAL IVP PRN (16:45)
[2022-03-16] MEDS ORDERED: MORPHINE SULFATE 2 MG/ML INJ. IV PRN (16:45)
[2022-03-16] MEDS ORDERED: diphenhydrAMINE HCL 25 MG CAPSULE PO PRN ×2 (16:45)
[2022-03-16] MEDS ORDERED: ONDANSETRON PF 4 MG/2 ML VIAL. IVP PRN (16:45)
[2022-03-16 17:23] VITALS: BP 114/65
[2022-03-16] MEDS ORDERED: REMDESIVIR LOAD in IV NORMAL SALINE 250ML TV IV ONE (18:00)
[2022-03-16] MEDS: PANTOPRAZOLE 40 MG TABLET.DR. PO SCH (18:20)
[2022-03-16] MEDS: ZINC SULFATE 220 MG CAPSULE. PO SCH (18:20)
[2022-03-16] MEDS: ASCORBIC ACID 1,000 MG TABLET PO SCH ×2 (18:20→20:44)
[2022-03-16] MEDS: methylPREDNISolone SOD SUCC PF 40 MG/ML VIAL. IV SCH ×2 (18:20→20:44)
[2022-03-16] MEDS: THIAMINE 100 MG TABLET. PO SCH (18:21)
[2022-03-16] MEDS: ENOXAPARIN 40 MG/0.4 ML SYRINGE. SQ SCH (18:21)
[2022-03-16 19:55] VITALS: BP 136/68
[2022-03-16 23:30] VITALS: BP 125/75
[2022-03-17] MEDS: IV NORMAL SALINE 1000ML BAG 1,000 ML IV SCH ×2 (02:45→13:54)
[2022-03-17 03:45] VITALS: BP 126/79
[2022-03-17] MEDS: methylPREDNISolone SOD SUCC PF 40 MG/ML VIAL. IV SCH ×3 (06:12→20:34)
[2022-03-17 07:00] VITALS: BP 138/80
[2022-03-17 07:31] LABS: CALCIUM 8.9 mg/dL (8.5-10.1); CREATININE 0.7 mg/dL (0.6-1.0); GFR 82.3; MAGNESIUM 2.2 mg/dL (1.8-2.4); PHOSPHORUS 4.9 mg/dL (2.6-4.7); POTASSIUM 3.7 mmol/L (3.5-5.1)
[2022-03-17] MEDS: THIAMINE 100 MG TABLET. PO SCH (07:48)
[2022-03-17] MEDS: ZINC SULFATE 220 MG CAPSULE. PO SCH (07:48)
[2022-03-17] MEDS: PANTOPRAZOLE 40 MG TABLET.DR. PO SCH (07:49)
[2022-03-17] MEDS: ASCORBIC ACID 1,000 MG TABLET PO SCH ×3 (07:49→20:33)
--- NOTE | 2022-03-17 08:11 | PDOC ---
[employer] PROGRESS NOTE Date of Service DOS: DATE: 03/17/22 TIME: 08:08 Chief Complaint Chief Complaint Acute hypoxic respiratory failure COVID-19 pneumonia Normocytic anemia likely due to MAIA Lymphopenia History of dyslipidemia History of osteoarthritis Admit to medicine for further management Fall precautions Consider pulmonology consult Continue IV thiamine and vitamin C IV Solu-Medrol every 8 hours IV Remdesivir if patient requires O2 supplementation beyond there baseline Pending CRP, D-dimer labs Titrate O2 supplementation to maintain O2 saturation greater than 92% Empiric IV antibiotics if patient has clinical presentation for bacterial pneumonia Lovenox for DVT prophylaxis Protonix while on steroids GI prophylaxis ADA diet Full code Discussed with RN and SW Disposition inpatient management as above Surrogate decision maker is the History of Present Illness History of Present Illness 71-year-old female with past medical history significant for recent left foot surgery, hyperlipidemia, hypertension who presents with chief complaint of lightheadedness and shortness of breath. She notes 3 days ago she began having subjective fevers. Note she has had body aches. Notes a dry cough. Notes a mild sore throat. States that yesterday she became somewhat lightheaded particular with ambulation actually fell to the ground. States she struck a wall but did not hit her head. Slid to the ground on her bottom. Has been walking with a cane recently due to her foot surgery. Notes that she feels as though she cannot take a full breath. Denies history of blood clot in the legs or lungs. Denies swelling to the lower extremities. Denies orthopnea. Denies any history of underlying lung or cardiac disorders. Is vaccinated for COVID and influenza. Denies sick contacts. Denies any vertiginous symptoms. Denies headache. 03/17: Still hypoxic O2 saturations 93% on 4 L/min nasal cannula O2. She has been getting up frequently with watery stools. She is feeling weak and notes that she does live alone is a . She still has significant dyspnea no wheezing no chest pain. We will add Imodium and initiate therapy today. Vitals/I&O Vitals/I&O: Vital Signs Date Time Temp Pulse Resp B/P (MAP) Pulse Ox O2 Delivery O2 Flow Rate FiO2 03/17/22 07:00 97.6 81 17 138/80 (99) 97 Nasal Cannula 2.0 97.6 I & O 503/16/22 03/17/22 15:00 23:00 07:00 Intake Total 1000 ml Output Total 600 ml Balance 1000 ml -600 ml Physical Exam General: Alert, Oriented X3, Cooperative, mild distress Heart: Regular rate, Normal S1, Normal S2 Lungs: Clear Abdomen: Normal bowel sounds, Soft Extremities: No clubbing, No cyanosis Skin: No rashes, No breakdown Labs Labs: Laboratory Tests Test 03/16/22 13:54 03/16/22 15:12 03/17/22 06:15 Influenza Type A Antigen Negative (NEGATIVE) Influenza Type B Antigen Negative (NEGATIVE) SARS-CoV-2 Antigen (Rapid) Positive (NEGATIVE) White Blood Count 3.8 x10^3/uL (4.0-11.0) Red Blood Count 3.86 x10^6/uL (3.50-5.40) Hemoglobin 11.4 g/dL (12.0-15.5) Hematocrit 33.5 % (36.0-47.0) Mean Corpuscular Volume 87 fL (79-100) Mean Corpuscular Hemoglobin 30 pg (25-35) Mean Corpuscular Hemoglobin Concent 34 g/dL (31-37) Red Cell Distribution Width 15.1 % (11.5-14.5) Platelet Count 215 x10^3/uL (140-400) Neutrophils (%) (Auto) 67 % (31-73) Lymphocytes (%) (Auto) 16 % (24-48) Monocytes (%) (Auto) 17 % (0-9) Eosinophils (%) (Auto) 0 % (0-3) Basophils (%) (Auto) 1 % (0-3) Neutrophils # (Auto) 2.6 x10^3/uL (1.8-7.7) Lymphocytes # (Auto) 0.6 x10^3/uL (1.0-4.8) Monocytes # (Auto) 0.6 x10^3/uL (0.0-1.1) Eosinophils # (Auto) 0.0 x10^3/uL (0.0-0.7) Basophils # (Auto) 0.0 x10^3/uL (0.0-0.2) D-Dimer (Teri) 2.63 ug/mlFEU (0.00-0.50) Sodium Level 139 mmol/L (136-145) 142 mmol/L (136-145) Potassium Level 3.8 mmol/L (3.5-5.1) 3.7 mmol/L (3.5-5.1) Chloride Level 102 mmol/L (98-107) 108 mmol/L (98-107) Carbon Dioxide Level 20 mmol/L (21-32) 18 mmol/L (21-32) Anion Gap 17 (6-14) 16 (6-14) Blood Urea Nitrogen 20 mg/dL (7-20) 16 mg/dL (7-20) Creatinine 0.8 mg/dL (0.6-1.0) 0.7 mg/dL (0.6-1.0) Estimated GFR (Cockcroft-Gault) 70.5 82.3 BUN/Creatinine Ratio 25 (6-20) Glucose Level 83 mg/dL (70-99) 138 mg/dL (70-99) Lactic Acid Level 1.4 mmol/L (0.4-2.0) Calcium Level 8.5 mg/dL (8.5-10.1) 8.9 mg/dL (8.5-10.1) Total Bilirubin 0.6 mg/dL (0.2-1.0) Aspartate Amino Transf (AST/SGOT) 24 U/L (15-37) Alanine Aminotransferase (ALT/SGPT) 22 U/L (14-59) Alkaline Phosphatase 89 U/L (46-116) Troponin I High Sensitivity 7 ng/L (4-50) C-Reactive Protein, Quantitative 69.1 mg/L (0-3.3) AU-Jon-N-Type Natriuretic Peptide 188 pg/mL (0-124) Total Protein 6.4 g/dL (6.4-8.2) Albumin 3.1 g/dL (3.4-5.0) Albumin/Globulin Ratio 0.9 (1.0-1.7) Procalcitonin < 0.10 ng/mL (0.00-0.10) Phosphorus Level 4.9 mg/dL (2.6-4.7) Magnesium Level 2.2 mg/dL (1.8-2.4) Assessment and Plan Assessmemt and Plan Problems Medical Problems: (1) COVID-19 Status: Acute (2) Respiratory failure Status: Acute Comment Review of Relevant I have reviewed the following items janay (where applicable) has been applied. Medications: Current Medications Medications (Trade) Dose Ordered Sig/Jeanmarie Route PRN Reason Start Time Stop Time Status Last Admin Dose Admin Acetaminophen (Tylenol) 1,000 mg 1X ONCE PO 03/16/22 14:30 03/16/22 14:31 DC 03/16/22 14:30 Sodium Chloride 1,000 ml @ 1,000 mls/hr 1X ONCE IV 03/16/22 14:30 03/16/22 15:29 DC 03/16/22 14:40 Albuterol Sulfate (Ventolin Hfa) 4 puff 1X ONCE INH 03/16/22 15:00 03/16/22 15:01 DC 03/16/22 15:01 Ascorbic Acid (Vitamin C) 3,000 mg TID PO 03/16/22 17:00 03/17/22 07:49 Methylprednisolone Sodium Succinate (SOLU-Medrol 40MG VIAL) 40 mg Q8HRS IV 03/16/22 17:00 03/17/22 06:12 Thiamine Mononitrate (Vitamin B-1) 300 mg DAILY PO 03/16/22 17:00 03/17/22 07:48 Zinc Sulfate (Orazinc) 220 mg DAILY PO 03/16/22 17:00 03/17/22 07:48 Sodium Chloride 1,000 ml @ 100 mls/hr Q10H IV 03/16/22 16:45 03/17/22 02:45 Enoxaparin Sodium (Lovenox 40mg Syringe) 40 mg Q24H SQ 03/16/22 17:00 03/16/22 18:21 Pantoprazole Sodium (Protonix) 40 mg DAILYAC PO 03/16/22 16:30 03/17/22 07:49 Remdesivir 200 mg/ Sodium Chloride 210 ml @ 210 mls/hr 1X ONCE IV 03/16/22 18:00 03/16/22 18:59 DC 03/16/22 18:21 Justifications for Admission Other Justification COVID-19 positive test (U07.1, COVID-19) with Acute Pneumonia (J12.89, Other viral pneumonia) (If respiratory failure or sepsis present, add as separate assessment) LONG OLSEN MD March 17, 2022 08:10
[2022-03-17] MEDS ORDERED: guaiFENesin DM 200MG/20MG 10 ML SYRUP PO PRN (08:15)
[2022-03-17 08:43] LABS: BASO % 0 % (0-3); EOS % 0 % (0-3); HEMATOCRIT 39.7 % (36.0-47.0); LYMPH # 0.5 x10^3/uL (1.0-4.8); LYMPH % 23 % (24-48); MEAN CORPUSCULAR HEMOGLOBIN 29 pg (25-35); MEAN CORPUSCULAR HGB CONC 33 g/dL (31-37); MEAN CORPUSCULAR VOLUME 89 fL (79-100); MONO # 0.1 x10^3/uL (0.0-1.1); MONO % 5 % (0-9); NEUT # 1.5 x10^3/uL (1.8-7.7); NEUT % 73 % (31-73); PLATELET COUNT 222 x10^3/uL (140-400); RED BLOOD COUNT 4.45 x10^6/uL (3.50-5.40); RED CELL DISTRIBUTION WIDTH 15.2 % (11.5-14.5)
[2022-03-17] MEDS ORDERED: LOPERAMIDE 2 MG CAPSULE PO PRN (10:15)
[2022-03-17 10:39] VITALS: BP 131/75
[2022-03-17 14:09] VITALS: BP 112/67
[2022-03-17] MEDS: ENOXAPARIN 40 MG/0.4 ML SYRINGE. SQ SCH (16:36)
[2022-03-17] MEDS: REMDESIVIR 100mg in NORMAL SALINE 250ML X 4 DAYS IV SCH (16:37)
[2022-03-17 19:00] VITALS: BP 118/73
[2022-03-17] MEDS: PSYLLIUM HUSK (SUGAR FREE) 1 PKT PACKET PO SCH (20:33)
[2022-03-17 22:57] VITALS: BP 141/81
[2022-03-18] MEDS: IV NORMAL SALINE 1000ML BAG 1,000 ML IV SCH ×3 (00:42→18:45)
[2022-03-18 02:46] VITALS: BP 125/72
[2022-03-18] MEDS: methylPREDNISolone SOD SUCC PF 40 MG/ML VIAL. IV SCH ×3 (05:53→21:06)
[2022-03-18] MEDS: PANTOPRAZOLE 40 MG TABLET.DR. PO SCH (05:54)
[2022-03-18 05:59] VITALS: BP 138/70
[2022-03-18] MEDS: ASCORBIC ACID 1,000 MG TABLET PO SCH ×3 (07:40→20:15)
[2022-03-18] MEDS: ZINC SULFATE 220 MG CAPSULE. PO SCH (07:40)
[2022-03-18] MEDS: THIAMINE 100 MG TABLET. PO SCH (07:40)
[2022-03-18 08:18] LABS: CALCIUM 8.4 mg/dL (8.5-10.1); CREATININE 0.7 mg/dL (0.6-1.0); GFR 82.3; POTASSIUM 3.9 mmol/L (3.5-5.1)
[2022-03-18 08:19] LABS: BASO % 0 % (0-3); EOS % 0 % (0-3); HEMATOCRIT 34.8 % (36.0-47.0); HEMOGLOBIN 11.5 g/dL (12.0-15.5); LYMPH # 0.6 x10^3/uL (1.0-4.8); LYMPH % 9 % (24-48); MEAN CORPUSCULAR HEMOGLOBIN 29 pg (25-35); MEAN CORPUSCULAR HGB CONC 33 g/dL (31-37); MEAN CORPUSCULAR VOLUME 89 fL (79-100); MONO # 0.3 x10^3/uL (0.0-1.1); MONO % 5 % (0-9); NEUT # 5.5 x10^3/uL (1.8-7.7); NEUT % 86 % (31-73); PLATELET COUNT 230 x10^3/uL (140-400); RED BLOOD COUNT 3.92 x10^6/uL (3.50-5.40); RED CELL DISTRIBUTION WIDTH 15.1 % (11.5-14.5); WHITE BLOOD COUNT 6.4 x10^3/uL (4.0-11.0)
--- NOTE | 2022-03-18 08:57 | EKG ---
[facility] [address] [place] [address] Test Date: 2022-03-16 Test Time: 13:54:12 Pat Name: ROM CRAIG Department: Room: [facility] Gender: F [employer] Lead: : 1950 Requested By: RENY MCMAHON Order Number: [id number] Reading MD: Moe Paulino MD Measurements Intervals [place] Rate: 71 P: 23 [place]: 132 QRS: 19 QRSD: 76 T: 31 QT: 394 QTc: 433 Interpretive Statements SINUS RHYTHM Electronically Signed On 03-18-2022 11:04:05 CDT by Moe Paulino MD
--- NOTE | 2022-03-18 10:45 | PDOC ---
[employer] PROGRESS NOTE Date of Service DOS: DATE: 03/18/22 TIME: 10:43 Chief Complaint Chief Complaint Acute hypoxic respiratory failure COVID-19 pneumonia Normocytic anemia likely due to MAIA Lymphopenia History of dyslipidemia History of osteoarthritis Admit to medicine for further management Fall precautions Consider pulmonology consult Continue IV thiamine and vitamin C IV Solu-Medrol every 8 hours IV Remdesivir if patient requires O2 supplementation beyond there baseline Pending CRP, D-dimer labs Titrate O2 supplementation to maintain O2 saturation greater than 92% Empiric IV antibiotics if patient has clinical presentation for bacterial pneumonia Lovenox for DVT prophylaxis Protonix while on steroids GI prophylaxis ADA diet Full code Discussed with RN and SW Disposition inpatient management as above Surrogate decision maker is the History of Present Illness History of Present Illness 03/18/2022 Patient seen and examined She is shaking and weak States she just vomited Appears depressed and frail and weak Discussed with RN Discussed with case management Chart reviewed 71-year-old female with past medical history significant for recent left foot surgery, hyperlipidemia, hypertension who presents with chief complaint of lightheadedness and shortness of breath. She notes 3 days ago she began having subjective fevers. Note she has had body aches. Notes a dry cough. Notes a mild sore throat. States that yesterday she became somewhat lightheaded particular with ambulation actually fell to the ground. States she struck a wall but did not hit her head. Slid to the ground on her bottom. Has been walking with a cane recently due to her foot surgery. Notes that she feels as though she cannot take a full breath. Denies history of blood clot in the legs or lungs. Denies swelling to the lower extremities. Denies orthopnea. Denies any history of underlying lung or cardiac disorders. Is vaccinated for COVID and influenza. Denies sick contacts. Denies any vertiginous symptoms. Denies headache. 03/17: Still hypoxic O2 saturations 93% on 4 L/min nasal cannula O2. She has been getting up frequently with watery stools. She is feeling weak and notes that she does live alone is a . She still has significant dyspnea no wheezing no chest pain. We will add Imodium and initiate therapy today. Vitals/I&O Vitals/I&O: Vital Signs Date Time Temp Pulse Resp B/P (MAP) Pulse Ox O2 Delivery O2 Flow Rate FiO2 03/18/22 08:00 Nasal Cannula 2.0 03/18/22 05:59 96.3 55 16 138/70 (92) 99 96.3 I & O 03/17/22 03/17/22 03/18/22 15:00 23:00 07:00 Intake Total 1360 ml 590 ml 1000 ml Output Total 200 ml Balance 1160 ml 590 ml 1000 ml Physical Exam General: Alert, Oriented X3, Cooperative, mild distress, Other (Weak pale just vomited) Heart: Regular rate, Normal S1, Normal S2 Lungs: Clear Abdomen: Normal bowel sounds, Soft Extremities: No clubbing, No cyanosis Skin: No rashes, No breakdown Labs Labs: Laboratory Tests Test 03/18/22 07:55 White Blood Count 6.4 x10^3/uL (4.0-11.0) Red Blood Count 3.92 x10^6/uL (3.50-5.40) Hemoglobin 11.5 g/dL (12.0-15.5) Hematocrit 34.8 % (36.0-47.0) Mean Corpuscular Volume 89 fL (79-100) Mean Corpuscular Hemoglobin 29 pg (25-35) Mean Corpuscular Hemoglobin Concent 33 g/dL (31-37) Red Cell Distribution Width 15.1 % (11.5-14.5) Platelet Count 230 x10^3/uL (140-400) Neutrophils (%) (Auto) 86 % (31-73) Lymphocytes (%) (Auto) 9 % (24-48) Monocytes (%) (Auto) 5 % (0-9) Eosinophils (%) (Auto) 0 % (0-3) Basophils (%) (Auto) 0 % (0-3) Neutrophils # (Auto) 5.5 x10^3/uL (1.8-7.7) Lymphocytes # (Auto) 0.6 x10^3/uL (1.0-4.8) Monocytes # (Auto) 0.3 x10^3/uL (0.0-1.1) Eosinophils # (Auto) 0.0 x10^3/uL (0.0-0.7) Basophils # (Auto) 0.0 x10^3/uL (0.0-0.2) Sodium Level 145 mmol/L (136-145) Potassium Level 3.9 mmol/L (3.5-5.1) Chloride Level 112 mmol/L (98-107) Carbon Dioxide Level 22 mmol/L (21-32) Anion Gap 11 (6-14) Blood Urea Nitrogen 14 mg/dL (7-20) Creatinine 0.7 mg/dL (0.6-1.0) Estimated GFR (Cockcroft-Gault) 82.3 Glucose Level 134 mg/dL (70-99) Calcium Level 8.4 mg/dL (8.5-10.1) Magnesium Level 2.0 mg/dL (1.8-2.4) Assessment and Plan Assessmemt and Plan Problems Medical Problems: (1) COVID-19 Status: Acute (2) Respiratory failure Status: Acut Covid-19 respiratory failure Normocytic anemia likely due to MAIA Lymphopenia History of dyslipidemia History of osteoarthritis Plan COVID protocol Remdesivir Antibiotics Steroids O2 per nasal cannula Vitamins Home meds DVT prophylaxis Full code Protonix while on steroids GI prophylaxis ADA diet Full code Discussed with RN and SW Disposition inpatient management as above Surrogate decision maker is the Comment Review of Relevant I have reviewed the following items janay (where applicable) has been applied. Medications: Current Medications Medications (Trade) Dose Ordered Sig/Jeanmarie Route PRN Reason Start Time Stop Time Status Last Admin Dose Admin Remdesivir 100 mg/ Sodium Chloride 230 ml @ 460 mls/hr Q24H IV 03/17/22 18:00 03/20/22 18:29 03/17/22 16:37 Justifications for Admission Other Justification COVID-19 positive test (U07.1, COVID-19) with Acute Pneumonia (J12.89, Other viral pneumonia) (If respiratory failure or sepsis present, add as separate assessment) SHELLY MUSTAFA III DO March 18, 2022 10:45
[2022-03-18 15:00] VITALS: BP 129/65
--- NOTE | 2022-03-18 15:39 | NUR ---
SS following for discharge planning. SS reviewed pt chart and discussed with pt RN. Pt is currently requiring oxygen at two liters nasal canula. COVID19 positive. Pt on IV Remdesivir and IV Solu-Medrol. PT/OT recommended snf unit. SS will continue to follow for discharge planning.
[2022-03-18] MEDS: ENOXAPARIN 40 MG/0.4 ML SYRINGE. SQ SCH (16:29)
[2022-03-18] MEDS: REMDESIVIR 100mg in NORMAL SALINE 250ML X 4 DAYS IV SCH (16:29)
[2022-03-18 19:55] VITALS: BP 121/67
[2022-03-18] MEDS: PSYLLIUM HUSK (SUGAR FREE) 1 PKT PACKET PO SCH (20:16)
== END 2022-03-19 | disposition home or self-care (01) | DRG 177 ==
LOC: ER 12:18 → 6 SOUTH 16:00
PROVIDERS: ADMIT Internal Medicine; ATTEND Internal Medicine
PROC: XW033E5 Introduction of Remdesivir Anti-infective into Peripheral Vein, Percutaneous Approach, New Technology Group 5 (ICD-10-PCS; principal; 2022-03-17)
DX: U07.1 COVID-19 (principal); J12.82 Pneumonia due to coronavirus disease 2019; J96.01 Acute respiratory failure with hypoxia; J11.08 Influenza due to unidentified influenza virus with specified pneumonia; D64.9 Anemia, unspecified; D72.810 Lymphocytopenia; E78.00 Pure hypercholesterolemia, unspecified; E78.5 Hyperlipidemia, unspecified; I10 Essential (primary) hypertension; M16.11 Unilateral primary osteoarthritis, right hip; M16.12 Unilateral primary osteoarthritis, left hip; M19.011 Primary osteoarthritis, right shoulder; M41.9 Scoliosis, unspecified; M19.90 Unspecified osteoarthritis, unspecified site
CPT/HCPCS: 36415; 71045; 73502; 80048; 80053; 83605; 83735; 83880; 84100; 84145; 84484; 85025; 85379; 86140; 87428; 93005; 96360; 96361; J1650; J2405; J2920; J7030; J7050; 97116-GP; 97535-GO; 99285-25; G0378